=== PATIENT | female | born 1945 | race Caucasian/White ===

== ENCOUNTER 2016-11-15 09:28 | Outpatient (RCR) | payer MEDICARE ==
--- OUTSIDE RECORDS SUMMARY | 2016-09-27 09:47 | XMS REPORT | Continuity of Care Document ---
Author Author [facility] Organization [facility] Address Unknown Phone Unavailable Care Team Providers Care Sports Fitness And Wellness Director Name Role Phone Tyler Arevalo PCP [phone] Source Comments Some departments are not documenting in the electronic medical record. If you do not see the information that you expected, contact Release of Information in the Health Information Management department at [phone] for further assistance in locating additional records.[facility] Active Allergies and Adverse Reactions Allergen Noted Date Severity Reactions Comments Aspirin 07/21/2015 Low SEE COMMENTS Extreme stomach pain Erythromycin 07/21/2015 Low NAUSEA AND VOMITING Pcn 07/21/2015 Medium RASH Percodan 07/21/2015 Low NAUSEA AND VOMITING Current Medications Prescription Sig. Disp. Refills Start End Date Status Date felodipine(+) (PLENDIL) 5 Take 5 mg by mouth twice Active mg tablet daily. bisoprolol/hydrochlorothi Take 1 Tab by mouth Active azide (ZIAC) 10/6.25 [address] daily[address] tablet pantoprazole DR Take 40 mg by mouth Active (PROTONIX) 40 mg tablet daily. Cetirizine (ZYRTEC) 10 mg Take 1 Cap by mouth Active cap daily. cyanocobalamin(+) Take 500 mcg by mouth Active (VITAMIN B-12) 500 mcg daily. tablet Psyllium (METAMUCIL) 1.7 Take 1 g by mouth daily. Active g wafr vitamins, multiple tablet Take 2 Tabs by mouth Active daily. aspirin 81 mg chewable Take 1 Tab by mouth 90 Tab 3 08/08/20 Active tablet daily. You may resume 1 15 week after surgery. clopiDOGrel (PLAVIX) 75 Take 1 Tab by mouth 90 Tab 3 08/06/20 Active mg tablet daily. Please resume in 15 5-7 days after surgery levothyroxine (SYNTHROID) Take 125 mcg by mouth Active 125 mcg tablet daily. Active Problems Problem Noted Date HTN (hypertension) 07/31/2015 Anxiety 07/31/2015 GERD (gastroesophageal reflux disease) 07/31/2015 Hoarseness 07/31/2015 Thyroid cancer (HCC) 07/21/2015 Papillary thyroid carcinoma (HCC) 07/21/2015 Vocal cord paralysis 07/21/2015 Social History Tobacco Use Types Packs/Day Years Used Date Current Every Day Smoker Cigarettes 1 30 Smokeless Tobacco: Never Used Tobacco Cessation: Ready to Quit: No; Counseling Given: No Comments: Alcohol Use Drinks/Week oz/Week Comments No 0 Standard 0.0 drinks or equivalent Last Filed Vital Signs Vital Sign Reading Time Taken Blood Pressure 146/68 09/10/2015 10:09 AM VETERINARIAN Pulse 74 09/10/2015 10:09 AM VETERINARIAN Temperature 36.3 C (97.4 F) 08/01/2015 9:36 AM CDT Respiratory Rate - - Height 1.6 m (5' 3") 09/10/2015 10:09 AM VETERINARIAN Weight 58.786 kg (129 lb 9.6 oz) 09/10/2015 10:09 AM VETERINARIAN Body Mass Index 22.96 09/10/2015 10:09 AM VETERINARIAN Oxygen Saturation 100% 08/01/2015 9:36 AM CDT Plan of Care Health Maintenance Due Date Last Done Comments Physical (Comprehensive) 1950 Exam Pertussis Vaccine 1954 Tetanus Vaccine 1960 Breast Cancer Screening 1983 Colorectal Cancer 1993 Screening Shingles Vaccine 2003 Osteoporosis Screening 2008 Prevnar/Pneumovax (#1) 2008 Influenza Vaccine 07/01/2016 Results from Last 3 Months Not on file
[2016-09-27 09:50] LABS: BASOPHILS % (AUTO) 0 % (0-10); EOSINOPHILS # (AUTO) 0.1 10^3/uL (0.0-0.3); EOSINOPHILS % (AUTO) 2 % (0-10); LYMPHOCYTES # (AUTO) 1.2 X 10^3 (1.0-4.0); LYMPHOCYTES % (AUTO) 20 % (12-44); MEAN CORPUSCULAR HGB CONC 34 G/DL (32-36); MEAN CORPUSCULAR VOLUME 89 FL (80-99); MEAN PLATELET VOLUME 11.3 FL (7.4-10.4); MONOCYTES # (AUTO) 0.5 X 10^3 (0.0-1.0); MONOCYTES % (AUTO) 8 % (0-12); NEUTROPHILS # (AUTO) 4.2 X 10^3 (1.8-7.8); NEUTROPHILS % (AUTO) 69 % (42-75); PLATELET COUNT 215 10^3/uL (130-400); RED CELL DISTRIBUTION WIDTH 13.3 % (10.0-14.5); WHITE BLOOD COUNT 6.1 10^3/uL (4.3-11.0)
[2016-09-27 09:53] LABS: MEAN CORPUSCULAR HEMOGLOBIN 30 PG (25-34)
[2016-09-27 10:22] LABS: ALANINE AMINOTRANSFERASE 13 U/L (0-55); ALBUMIN 4.4 G/DL (3.2-4.5); ANION GAP 8 MMOL/L (5-14); ASPARTATE AMINO TRANSFERASE 26 U/L (5-34); BILIRUBIN,TOTAL 0.5 MG/DL (0.1-1.0); BLOOD UREA NITROGEN 18 MG/DL (7-18); BUN/CREATININE RATIO 25; CALCIUM 8.6 MG/DL (8.5-10.1); CARBON DIOXIDE 26 MMOL/L (21-32); CHLORIDE 106 MMOL/L (98-107); CREATININE SERUM 0.72 MG/DL (0.60-1.30); GFR ESTIMATED > 60; GLUCOSE 90 MG/DL (70-105); POTASSIUM 3.9 MMOL/L (3.6-5.0); SODIUM 140 MMOL/L (135-145); TOTAL PROTEIN 6.9 G/DL (6.4-8.2)
[2016-09-27 10:42] LABS: THYROID STIMULATING HORMONE 0.01 UIU/ML (0.35-4.94)
[2016-09-28 07:42] LABS: THYROGLOBULIN LEVELC 6.33 ng/mL (1.60-59.90)
[2016-09-28 15:14] LABS: THYROGLOBULIN AUTOANTIBODY PT 0.03 Units (0.00-0.50)
[~2016-11-15 09:28] MED LIST: Aspirin PO; BISO1TAB6 PO; CLPD75T PO; FELO5TAB3 PO; IBUP800T26 PO; MECL-124 PO; OMEP20CA6 PO; PNT40TEC PO; SIMV10TA3 PO
== END 2016-12-26 | disposition home or self-care (01) ==
LOC: ONC 09:28
PROVIDERS: ATTEND Internal Medicine Hematology & Oncology
DX: C73 Malignant neoplasm of thyroid gland (principal); E89.0 Postprocedural hypothyroidism; I25.10 Atherosclerotic heart disease of native coronary artery without angina pectoris; E78.5 Hyperlipidemia, unspecified; I10 Essential (primary) hypertension; F17.210 Nicotine dependence, cigarettes, uncomplicated; Z79.899 Other long term (current) drug therapy
CPT/HCPCS: 36415; 80053; 84432; 84443; 85025; 86800; 99213

== ENCOUNTER → 2016-12-29 | Outpatient (CLI) | payer MEDICARE ==
--- OUTSIDE RECORDS SUMMARY | 2016-12-29 13:54 | XMS REPORT | Continuity of Care Document ---
Author Author [facility] Organization [facility] Address Unknown Phone Unavailable Care Team Providers Care Crime Investigator Special Agent Name Role Phone Tyler Arevalo PCP [phone] Source Comments Some departments are not documenting in the electronic medical record. If you do not see the information that you expected, contact Release of Information in the Health Information Management department at [phone] for further assistance in locating additional records.[facility] Active Allergies and Adverse Reactions Allergen Noted [...] Taken Blood Pressure 146/68 09/10/2015 10:09 AM STONE GLUER Pulse 74 09/10/2015 10:09 AM STONE GLUER Temperature 36.3 C (97.4 F) 08/01/2015 9:36 AM CDT Respiratory Rate - - Height 1.6 m (5' 3") 09/10/2015 10:09 AM STONE GLUER Weight 58.786 kg (129 lb 9.6 oz) 09/10/2015 10:09 AM STONE GLUER Body Mass Index 22.96 09/10/2015 10:09 AM STONE GLUER Oxygen Saturation 100% 08/01/2015 9:36 AM CDT Plan of Care Health Maintenance Due Date Last Done Comments Physical (Comprehensive) 1950 Exam Pertussis Vaccine 1954 Tetanus Vaccine 1960 Breast Cancer Screening 1983 Colorectal Cancer 1993 Screening Shingles Vaccine 2003 Osteoporosis Screening 2008 Prevnar/Pneumovax (#1) 2008 Influenza Vaccine 07/01/2016 Results from Last 3 Months Not on file
--- NOTE | 2016-12-31 18:17 | Diagnostic Imaging Report ---
INDICATION: History of papillary thyroid cancer.. TECHNIQUE: 4.36 mCi of iodine-131 administered orally. 48-hour whole body imaging obtained. CORRELATION STUDY: 11/24/2015. FINDINGS: The previously noted intense uptake at the level of the thyroid bed has essentially resolved. There is rather pronounced uptake noted at the region of base of neck towards the right of midline. This is likely in the expected location of right submandibular region and appears to have increased compared to the prior study. Remainder of the neck appearing with minimal uptake on the left aspect. Likely physiologic uptake throughout the gastrointestinal tract. Otherwise, chest, abdomen and pelvis appearing unremarkable. IMPRESSION: 1. Increasing uptake in what appears to be region of the right submandibular gland compared to prior study. 2. Resolution of previously noted thyroid bed uptake. Dictated by: Dictated on workstation # [id number]
== END ==
LOC: CARD 13:50
PROVIDERS: ATTEND Radiology Radiation Oncology
DX: C73 Malignant neoplasm of thyroid gland (principal)
CPT/HCPCS: 78018

== ENCOUNTER → 2016-12-31 | Outpatient (CLI) | payer MEDICARE ==
--- OUTSIDE RECORDS SUMMARY | 2016-12-31 13:37 | XMS REPORT | Continuity of Care Document ---
Author Author [facility] Organization [facility] Address Unknown Phone Unavailable Care Team Providers Care Director Of Health Education Name Role Phone Tyler Arevalo PCP [phone] Source Comments Some departments are not documenting in the electronic medical record. If you do not see the information that you expected, contact Release of Information in the Health Information Management department at [phone] for further assistance in locating additional records.[facility] Active Allergies and Adverse Reactions Allergen [...] Taken Blood Pressure 146/68 09/10/2015 10:09 AM ANALYTIC MANAGER Pulse 74 09/10/2015 10:09 AM ANALYTIC MANAGER Temperature 36.3 C (97.4 F) 08/01/2015 9:36 AM CDT Respiratory Rate - - Height 1.6 m (5' 3") 09/10/2015 10:09 AM ANALYTIC MANAGER Weight 58.786 kg (129 lb 9.6 oz) 09/10/2015 10:09 AM ANALYTIC MANAGER Body Mass Index 22.96 09/10/2015 10:09 AM ANALYTIC MANAGER Oxygen Saturation 100% 08/01/2015 9:36 AM CDT Plan of Care Health Maintenance Due Date Last Done Comments Physical (Comprehensive) 1950 Exam Pertussis Vaccine 1954 Tetanus Vaccine 1960 Breast Cancer Screening 1983 Colorectal Cancer 1993 Screening Shingles Vaccine 2003 Osteoporosis Screening 2008 Prevnar/Pneumovax (#1) 2008 Influenza Vaccine 07/01/2016 Results from Last 3 Months Not on file
== END ==
LOC: CARD 13:33
PROVIDERS: ATTEND Radiology Radiation Oncology
DX: C73 Malignant neoplasm of thyroid gland (principal)

== ENCOUNTER 2017-01-27 08:54 | Outpatient (RCR) | payer MEDICARE ==
--- OUTSIDE RECORDS SUMMARY | 2016-12-27 14:00 | XMS REPORT | Continuity of Care Document ---
Author Author [facility] Organization [facility] Address Unknown Phone Unavailable Care Team Providers Care Steward/Stewardess Smoke Room Name Role Phone Tyler Arevalo PCP [phone] Source Comments Some departments are not documenting in the electronic medical record. If you do not see the information that you expected, contact Release of Information in the Health Information Management department at [phone] for further assistance in locating additional records.[facility] Active Allergies and Adverse Reactions Allergen Noted [...] Taken Blood Pressure 146/68 09/10/2015 10:09 AM TANNING SOLUTION MAKER Pulse 74 09/10/2015 10:09 AM TANNING SOLUTION MAKER Temperature 36.3 C (97.4 F) 08/01/2015 9:36 AM CDT Respiratory Rate - - Height 1.6 m (5' 3") 09/10/2015 10:09 AM TANNING SOLUTION MAKER Weight 58.786 kg (129 lb 9.6 oz) 09/10/2015 10:09 AM TANNING SOLUTION MAKER Body Mass Index 22.96 09/10/2015 10:09 AM TANNING SOLUTION MAKER Oxygen Saturation 100% 08/01/2015 9:36 AM CDT Plan of Care Health Maintenance Due Date Last Done Comments Physical (Comprehensive) 1950 Exam Pertussis Vaccine 1954 Tetanus Vaccine 1960 Breast Cancer Screening 1983 Colorectal Cancer 1993 Screening Shingles Vaccine 2003 Osteoporosis Screening 2008 Prevnar/Pneumovax (#1) 2008 Influenza Vaccine 07/01/2016 Results from Last 3 Months Not on file
[2017-01-03 07:56] LABS: THYROGLOBULIN LEVELC 51.9 ng/mL (1.60-59.90)
[2017-01-03 14:46] LABS: THYROGLOBULIN AUTOANTIBODY PT 0.79 Units (0.00-0.50)
[2017-01-18 09:29] LABS: BASOPHILS % (AUTO) 0 % (0-10); EOSINOPHILS # (AUTO) 0.2 10^3/uL (0.0-0.3); EOSINOPHILS % (AUTO) 3 % (0-10); LYMPHOCYTES # (AUTO) 1.2 X 10^3 (1.0-4.0); LYMPHOCYTES % (AUTO) 20 % (12-44); MEAN CORPUSCULAR HEMOGLOBIN 31 PG (25-34); MEAN CORPUSCULAR HGB CONC 34 G/DL (32-36); MEAN CORPUSCULAR VOLUME 90 FL (80-99); MEAN PLATELET VOLUME 11.1 FL (7.4-10.4); MONOCYTES # (AUTO) 0.5 X 10^3 (0.0-1.0); MONOCYTES % (AUTO) 9 % (0-12); NEUTROPHILS % (AUTO) 68 % (42-75); PLATELET COUNT 221 10^3/uL (130-400); RED BLOOD COUNT 4.18 10^6/uL (4.35-5.85); RED CELL DISTRIBUTION WIDTH 13.9 % (10.0-14.5); WHITE BLOOD COUNT 5.8 10^3/uL (4.3-11.0)
[2017-01-18 10:18] LABS: ALANINE AMINOTRANSFERASE 19 U/L (0-55); ALBUMIN 4.2 G/DL (3.2-4.5); ANION GAP 12 MMOL/L (5-14); ASPARTATE AMINO TRANSFERASE 25 U/L (5-34); BILIRUBIN,TOTAL 0.4 MG/DL (0.1-1.0); BLOOD UREA NITROGEN 15 MG/DL (7-18); BUN/CREATININE RATIO 18; CALCIUM 8.6 MG/DL (8.5-10.1); CARBON DIOXIDE 26 MMOL/L (21-32); CHLORIDE 105 MMOL/L (98-107); CREATININE SERUM 0.82 MG/DL (0.60-1.30); GFR ESTIMATED > 60; GLUCOSE 100 MG/DL (70-105); SODIUM 143 MMOL/L (135-145)
[2017-01-18 10:40] LABS: THYROID STIMULATING HORMONE 0.06 UIU/ML (0.35-4.94)
[2017-01-19 16:02] LABS: THYROGLOBULIN AUTOANTIBODY PT 0.03 Units (0.00-0.50)
[2017-01-20 07:27] LABS: THYROGLOBULIN LEVELC 9.81 ng/mL (1.60-59.90)
[~2017-01-27 08:54] MED LIST changes: +THYROTROPIN 1.1 MG VIAL IM SCH
== END 2017-03-27 | disposition home or self-care (01) ==
LOC: ONC 08:54
PROVIDERS: ATTEND Internal Medicine Hematology & Oncology
DX: C73 Malignant neoplasm of thyroid gland (principal); E89.0 Postprocedural hypothyroidism; I25.10 Atherosclerotic heart disease of native coronary artery without angina pectoris; E78.5 Hyperlipidemia, unspecified; I10 Essential (primary) hypertension; F17.210 Nicotine dependence, cigarettes, uncomplicated; Z79.899 Other long term (current) drug therapy
CPT/HCPCS: 36415; 80053; 84432; 84443; 85025; 86800; 96372; 99213

== ENCOUNTER → 2017-03-08 | Outpatient (CLI) | payer MEDICARE ==
[~2017-03-08] VITALS: Ht 160 cm; Wt 58.5 kg
[~2017-03-08] MED LIST changes: +CATHETER FLUSH 10 ML SYR IV PRN; -THYROTROPIN 1.1 MG VIAL IM SCH
[2017-03-08 09:11] VITALS: BP 182/69
--- NOTE | 2017-03-09 06:33 | STRESS TEST ---
DATE OF SERVICE: 03/08/2017 PROCEDURE: RESTING AND POST EXERCISE TECHNETIUM 99-M TETROFOSMIN SPECT CT IMAGING ORDERING PHYSICIAN: Murali Infante MD, RADHA, FACP, FACC PRIMARY PHYSICIAN: VALENTIN Urbina OTHER PHYSICIAN: Dr. Glynn. CLINICAL DIAGNOSES: Coronary artery disease, hypertension, hyperlipidemia, tobacco use. Baseline images were carried out after injection of 10.4 mCi of technetium-99m Tetrofosmin. This was followed by exercise on treadmill per Julio Cesar protocol was completed. The heart rate and blood pressure responses to exercise were normal. There was baseline ST segment abnormality which became more prominent with exercise. The test was stopped on account of fatigue and knee discomfort. She exercised for only 5 minutes and 22 seconds on the Julio Cesar protocol and attained 7 METS of workload. Then, 32.4 mCi of technetium-99m Tetrofosmin were injected and the Lexiscan candidate was continued for another minute. I reviewed his images at rest and following stress does not indicate any significant perfusion defects consistent with significant myocardial ischemia or infarction; however, there appears to be some degree of transient ischemic dilation. TID is 1.28. CONCLUSIONS: 1. Poor exercise capacity. 2. Abnormal electrocardiographic response to exercise. 3. Evidence of mild transient ischemic dilatation. 4. No distinct evidence of myocardial ischemia or infarction on myocardial perfusion imaging. 5. Normal global left systolic function with an ejection fraction of 79%. 6. Normal left ventricular cavity size. Job ID: [id number] DocumentID: [id number] Dictated Date: 03/08/2017 14:14:11 [employer] Date: 03/08/2017 15:41:48 Dictated By: MURALI INFANTE MD, RADHA, FACP, FACC,
== END ==
LOC: CARD 07:56
PROVIDERS: ATTEND Nurse Practitioner Family
DX: I25.10 Atherosclerotic heart disease of native coronary artery without angina pectoris (principal); I65.23 Occlusion and stenosis of bilateral carotid arteries; I10 Essential (primary) hypertension; E78.4 Other hyperlipidemia; I73.9 Peripheral vascular disease, unspecified; Z72.0 Tobacco use
CPT/HCPCS: 78452; 93017

== ENCOUNTER → 2017-03-08 | Outpatient (CLI) | payer MEDICARE ==
[~2017-03-08] MED LIST changes: -CATHETER FLUSH 10 ML SYR IV PRN
== END ==
LOC: RAD 12:24
PROVIDERS: ATTEND Nurse Practitioner Family
DX: I73.9 Peripheral vascular disease, unspecified (principal); I25.10 Atherosclerotic heart disease of native coronary artery without angina pectoris; I65.23 Occlusion and stenosis of bilateral carotid arteries; I10 Essential (primary) hypertension; E78.4 Other hyperlipidemia; Z72.0 Tobacco use
CPT/HCPCS: 93923

== ENCOUNTER → 2017-04-07 | Outpatient (CLI) | payer MEDICARE ==
--- NOTE | 2017-04-07 10:52 | Diagnostic Imaging Report ---
EXAMINATION: DEXA scan. INDICATION: Osteopenia TECHNIQUE: Bone mineral density estimated based on dual energy radiography over the lumbar spine and femoral necks, was performed. FINDINGS: The lumbar spine T-score is 0.1. This is 5.8% increased density measurement compared to 2014. The T score over the left femoral neck is -0.3 and the right side is also -0.3. This is 1.4% decreased density measurements compared to 2014. IMPRESSION: Bone mineral density is within normal limits. Increased density measurement in the lumbar spine appears to be related to degenerative sclerotic changes. Dictated by: Dictated on workstation # [id number]
== END ==
LOC: RAD 09:14
PROVIDERS: ATTEND Internal Medicine Hematology & Oncology
DX: E89.40 Asymptomatic postprocedural ovarian failure (principal); C73 Malignant neoplasm of thyroid gland; T38.1X5 Adverse effect of thyroid hormones and substitutes; M89.9 Disorder of bone, unspecified
CPT/HCPCS: 77080

== ENCOUNTER → 2017-04-26 | Outpatient (CLI) | payer MEDICARE ==
[~2017-04-26] MED LIST changes: +CATHETER FLUSH 10 ML SYR IV PRN; +IOHEXOL 350 MG/ML 100 ML (OMNIPAQUE 350) VIAL IV ONE; +NS 100 ML (IVPB) BAG IV ONE
--- NOTE | 2017-04-26 11:11 | Diagnostic Imaging Report ---
PROCEDURE: CT neck soft tissue with contrast. TECHNIQUE: Multiple contiguous axial images were obtained through the neck after the administration of contrast. INDICATION: Cancer of the thyroid gland. 75 ML of Omnipaque 350 is administered intravenously. FINDINGS: Unfortunately, this is a limited study due to a significant motion as the patient was unable to stay still for the exam. There is suggestion of prior thyroidectomy. There is no obvious mass or lymphadenopathy seen. The paranasal sinuses visualized appear from grossly unremarkable. Osseous structures demonstrate no obvious destructive mass. IMPRESSION: This is a significantly limited study due to patient motion with no obvious mass seen. Dictated by: Dictated on workstation # [id number]
== END ==
LOC: RAD 08:41
PROVIDERS: ATTEND Nurse Practitioner Adult Health
DX: C73 Malignant neoplasm of thyroid gland (principal); E05.80 Other thyrotoxicosis without thyrotoxic crisis or storm
CPT/HCPCS: 70491

== ENCOUNTER 2017-06-29 15:11 | Outpatient (RCR) | payer MEDICARE ==
[2017-04-11 10:59] LABS: BASOPHILS % (AUTO) 0 % (0-10); EOSINOPHILS # (AUTO) 0.1 10^3/uL (0.0-0.3); EOSINOPHILS % (AUTO) 2 % (0-10); LYMPHOCYTES # (AUTO) 1.1 X 10^3 (1.0-4.0); LYMPHOCYTES % (AUTO) 20 % (12-44); MEAN CORPUSCULAR HEMOGLOBIN 30 PG (25-34); MEAN CORPUSCULAR HGB CONC 33 G/DL (32-36); MEAN CORPUSCULAR VOLUME 90 FL (80-99); MEAN PLATELET VOLUME 11.1 FL (7.4-10.4); MONOCYTES # (AUTO) 0.4 X 10^3 (0.0-1.0); MONOCYTES % (AUTO) 6 % (0-12); NEUTROPHILS # (AUTO) 4.1 X 10^3 (1.8-7.8); NEUTROPHILS % (AUTO) 72 % (42-75); PLATELET COUNT 206 10^3/uL (130-400); RED BLOOD COUNT 4.26 10^6/uL (4.35-5.85); RED CELL DISTRIBUTION WIDTH 13.8 % (10.0-14.5); WHITE BLOOD COUNT 5.7 10^3/uL (4.3-11.0)
[2017-04-11 11:34] LABS: ALANINE AMINOTRANSFERASE 16 U/L (0-55); ALBUMIN 4.3 G/DL (3.2-4.5); ANION GAP 11 MMOL/L (5-14); ASPARTATE AMINO TRANSFERASE 24 U/L (5-34); BILIRUBIN,TOTAL 0.5 MG/DL (0.1-1.0); BLOOD UREA NITROGEN 14 MG/DL (7-18); BUN/CREATININE RATIO 18; CALCIUM 9.1 MG/DL (8.5-10.1); CARBON DIOXIDE 27 MMOL/L (21-32); CHLORIDE 103 MMOL/L (98-107); CREATININE SERUM 0.79 MG/DL (0.60-1.30); GFR ESTIMATED > 60; GLUCOSE 94 MG/DL (70-105); SODIUM 141 MMOL/L (135-145); TOTAL PROTEIN 7.4 G/DL (6.4-8.2)
[2017-04-11 11:57] LABS: THYROID STIMULATING HORMONE 0.13 UIU/ML (0.35-4.94)
[2017-04-12 07:34] LABS: THYROGLOBULIN LEVELC 8.23 ng/mL (1.60-59.90)
[2017-04-12 15:34] LABS: THYROGLOBULIN AUTOANTIBODY PT 0.02 Units (0.00-0.50)
[~2017-06-29 15:11] MED LIST changes: -CATHETER FLUSH 10 ML SYR IV PRN; -IOHEXOL 350 MG/ML 100 ML (OMNIPAQUE 350) VIAL IV ONE; -NS 100 ML (IVPB) BAG IV ONE
== END 2017-07-10 | disposition home or self-care (01) ==
LOC: ONC 15:11
PROVIDERS: ATTEND Internal Medicine Hematology & Oncology
DX: C73 Malignant neoplasm of thyroid gland (principal); E89.0 Postprocedural hypothyroidism; I25.10 Atherosclerotic heart disease of native coronary artery without angina pectoris; E78.5 Hyperlipidemia, unspecified; I10 Essential (primary) hypertension; F17.210 Nicotine dependence, cigarettes, uncomplicated; Z79.899 Other long term (current) drug therapy
CPT/HCPCS: 36415; 80053; 82306; 84432; 84443; 85025; 86800; 99213

== ENCOUNTER 2017-07-27 08:45 | Outpatient (RCR) | payer MEDICARE ==
[2017-07-27 09:11] LABS: BASOPHILS % (AUTO) 0 % (0-10); EOSINOPHILS # (AUTO) 0.1 10^3/uL (0.0-0.3); EOSINOPHILS % (AUTO) 2 % (0-10); LYMPHOCYTES % (AUTO) 20 % (12-44); MEAN CORPUSCULAR HEMOGLOBIN 30 PG (25-34); MEAN CORPUSCULAR HGB CONC 34 G/DL (32-36); MEAN CORPUSCULAR VOLUME 89 FL (80-99); MEAN PLATELET VOLUME 11.6 FL (7.4-10.4); MONOCYTES # (AUTO) 0.4 X 10^3 (0.0-1.0); MONOCYTES % (AUTO) 7 % (0-12); NEUTROPHILS # (AUTO) 3.8 X 10^3 (1.8-7.8); NEUTROPHILS % (AUTO) 71 % (42-75); PLATELET COUNT 216 10^3/uL (130-400); RED BLOOD COUNT 4.58 10^6/uL (4.35-5.85); RED CELL DISTRIBUTION WIDTH 13.5 % (10.0-14.5); WHITE BLOOD COUNT 5.3 10^3/uL (4.3-11.0)
[2017-07-27 09:24] LABS: ALANINE AMINOTRANSFERASE 17 U/L (0-55); ALBUMIN 4.5 GM/DL (3.2-4.5); ANION GAP 12 MMOL/L (5-14); ASPARTATE AMINO TRANSFERASE 25 U/L (5-34); BILIRUBIN,TOTAL 0.5 MG/DL (0.1-1.0); BLOOD UREA NITROGEN 12 MG/DL (7-18); BUN/CREATININE RATIO 15; CALCIUM 9.2 MG/DL (8.5-10.1); CARBON DIOXIDE 27 MMOL/L (21-32); CHLORIDE 103 MMOL/L (98-107); CREATININE SERUM 0.78 MG/DL (0.60-1.30); GFR ESTIMATED > 60; GLUCOSE 106 MG/DL (70-105); SODIUM 142 MMOL/L (135-145)
[2017-07-27 09:43] LABS: THYROID STIMULATING HORMONE 0.03 UIU/ML (0.35-4.94)
[2017-07-28 10:08] LABS: THYROGLOBULIN LEVELC 10.2 ng/mL (1.60-59.90)
[2017-07-28 12:00] LABS: THYROGLOBULIN AUTOANTIBODY PT 0.04 Units (0.00-0.50)
== END 2017-07-30 | disposition home or self-care (01) ==
LOC: ONC 08:45
PROVIDERS: ATTEND Internal Medicine Hematology & Oncology
DX: C73 Malignant neoplasm of thyroid gland (principal); E89.0 Postprocedural hypothyroidism; I25.10 Atherosclerotic heart disease of native coronary artery without angina pectoris; E78.5 Hyperlipidemia, unspecified; I10 Essential (primary) hypertension; F17.210 Nicotine dependence, cigarettes, uncomplicated; Z79.899 Other long term (current) drug therapy
CPT/HCPCS: 36415; 80053; 84432; 84443; 85025; 86800

== ENCOUNTER → 2017-09-14 | Outpatient (CLI) | payer MEDICARE | LOC: CARD 13:09 | PROVIDERS: ATTEND Radiology Radiation Oncology | DX: C73 Malignant neoplasm of thyroid gland (principal) | CPT/HCPCS: 79005 ==

== ENCOUNTER → 2017-09-26 | Outpatient (CLI) | payer MEDICARE ==
--- NOTE | 2017-09-26 21:27 | Diagnostic Imaging Report ---
STUDY: Whole body Iodine scan. TECHNIQUE: After the oral administration of 163.7 mCi iodine-131, 10 days prior to scanning, whole body scan images are performed at this time. INDICATION: Thyroid cancer. FINDINGS: There is moderate intensity of activity seen in the upper neck. This is probably related to salivary gland activity. It is, however, slightly asymmetric, more prominent to the right side. The pattern is slightly different from 12/31/2016. No other areas of activity identified in the rest of the body to suggest metastasis. IMPRESSION: Moderate areas of activity in the upper neck are favored to be related to salivary gland uptake with no definitive evidence of tumor recurrence at the thyroidectomy bed. No significant tracer uptake outside the neck. Dictated by: Dictated on workstation # [id number]
== END ==
LOC: CARD 12:40
PROVIDERS: ATTEND Radiology Radiation Oncology
DX: C73 Malignant neoplasm of thyroid gland (principal)
CPT/HCPCS: 78018

== ENCOUNTER 2017-10-13 08:37 | Outpatient (RCR) | payer MEDICARE | END 2017-11-02 | disposition home or self-care (01) | LOC: ONC 08:37 | PROVIDERS: ATTEND Internal Medicine Hematology & Oncology | DX: C73 Malignant neoplasm of thyroid gland (principal); E89.0 Postprocedural hypothyroidism; I25.10 Atherosclerotic heart disease of native coronary artery without angina pectoris; E78.5 Hyperlipidemia, unspecified; I10 Essential (primary) hypertension; F17.210 Nicotine dependence, cigarettes, uncomplicated; Z79.899 Other long term (current) drug therapy | CPT/HCPCS: 36415; 77370; 84432; 84443; 86800; 99213 ==

== ENCOUNTER → 2017-11-30 | Outpatient (CLI) | payer MEDICARE ==
--- NOTE | 2017-11-30 10:06 | Diagnostic Imaging Report ---
Indication: Routine screening. Comparison: Comparison is made with prior exams from 11/23/2013 and 05/19/2012. The current study was also evaluated with a Computer Aided Detection (CAD) system. Findings: Scattered parenchymal density is identified bilaterally. The parenchymal pattern is stable. No dominant mass or malignant-appearing microcalcifications are seen. There are benign calcifications bilaterally. The axillae are unremarkable. Impression: BI-RAD category 2 No mammographic features suspicious for malignancy are identified. ACR BI-RADS Category 2: Benign findings. Result letter will be mailed to the patient. Note: At least 10% of breast cancer is not imaged by mammography. Dictated by: Dictated on workstation # [id number]
== END ==
LOC: RAD 07:59
PROVIDERS: ATTEND Family Medicine
DX: Z12.31 Encounter for screening mammogram for malignant neoplasm of breast (principal)
CPT/HCPCS: 77067

== ENCOUNTER 2018-01-30 08:12 | Outpatient (RCR) | payer MEDICARE ==
[2017-11-03 08:41] LABS: BASOPHILS % (AUTO) 1 % (0-10); EOSINOPHILS # (AUTO) 0.1 10^3/uL (0.0-0.3); EOSINOPHILS % (AUTO) 2 % (0-10); HEMATOCRIT 38 % (35-52); HEMOGLOBIN 12.8 G/DL (11.5-16.0); LYMPHOCYTES # (AUTO) 0.8 X 10^3 (1.0-4.0); LYMPHOCYTES % (AUTO) 18 % (12-44); MEAN CORPUSCULAR HEMOGLOBIN 31 PG (25-34); MEAN CORPUSCULAR HGB CONC 34 G/DL (32-36); MEAN CORPUSCULAR VOLUME 92 FL (80-99); MEAN PLATELET VOLUME 10.3 FL (7.4-10.4); MONOCYTES # (AUTO) 0.5 X 10^3 (0.0-1.0); MONOCYTES % (AUTO) 12 % (0-12); NEUTROPHILS # (AUTO) 2.9 X 10^3 (1.8-7.8); NEUTROPHILS % (AUTO) 67 % (42-75); PLATELET COUNT 214 10^3/uL (130-400); RED CELL DISTRIBUTION WIDTH 14.6 % (10.0-14.5); WHITE BLOOD COUNT 4.3 10^3/uL (4.3-11.0)
[2017-11-03 09:05] LABS: ALANINE AMINOTRANSFERASE 18 U/L (0-55); ALBUMIN 4.3 GM/DL (3.2-4.5); ALKALINE PHOSPHATASE 85 U/L (40-136); BILIRUBIN,TOTAL 0.6 MG/DL (0.1-1.0); BUN/CREATININE RATIO 17; CALCIUM 9.1 MG/DL (8.5-10.1); CARBON DIOXIDE 28 MMOL/L (21-32); CHLORIDE 103 MMOL/L (98-107); CREATININE SERUM 0.82 MG/DL (0.60-1.30); GFR ESTIMATED > 60; GLUCOSE 115 MG/DL (70-105); POTASSIUM 4.2 MMOL/L (3.6-5.0); SODIUM 142 MMOL/L (135-145); TOTAL PROTEIN 7.6 GM/DL (6.4-8.2)
[2018-01-30 09:07] LABS: BASOPHILS % (AUTO) 0 % (0-10); EOSINOPHILS # (AUTO) 0.1 10^3/uL (0.0-0.3); EOSINOPHILS % (AUTO) 2 % (0-10); HEMATOCRIT 39 % (35-52); HEMOGLOBIN 13.3 G/DL (11.5-16.0); LYMPHOCYTES % (AUTO) 19 % (12-44); MEAN CORPUSCULAR HEMOGLOBIN 31 PG (25-34); MEAN CORPUSCULAR HGB CONC 34 G/DL (32-36); MEAN CORPUSCULAR VOLUME 92 FL (80-99); MEAN PLATELET VOLUME 11.2 FL (7.4-10.4); MONOCYTES # (AUTO) 0.5 X 10^3 (0.0-1.0); MONOCYTES % (AUTO) 8 % (0-12); NEUTROPHILS % (AUTO) 71 % (42-75); PLATELET COUNT 242 10^3/uL (130-400); RED BLOOD COUNT 4.25 10^6/uL (4.35-5.85); RED CELL DISTRIBUTION WIDTH 12.3 % (10.0-14.5); WHITE BLOOD COUNT 5.6 10^3/uL (4.3-11.0)
[2018-01-30 09:38] LABS: ALANINE AMINOTRANSFERASE 18 U/L (0-55); ALBUMIN 4.3 GM/DL (3.2-4.5); ALKALINE PHOSPHATASE 82 U/L (40-136); BILIRUBIN,TOTAL 0.5 MG/DL (0.1-1.0); BUN/CREATININE RATIO 16; CALCIUM 8.9 MG/DL (8.5-10.1); CARBON DIOXIDE 27 MMOL/L (21-32); CHLORIDE 103 MMOL/L (98-107); GFR ESTIMATED > 60; GLUCOSE 139 MG/DL (70-105); POTASSIUM 3.7 MMOL/L (3.6-5.0); SODIUM 139 MMOL/L (135-145); TOTAL PROTEIN 7.5 GM/DL (6.4-8.2)
== END 2018-02-01 | disposition home or self-care (01) ==
LOC: ONC 08:12
PROVIDERS: ATTEND Internal Medicine Hematology & Oncology
DX: C73 Malignant neoplasm of thyroid gland (principal); E89.0 Postprocedural hypothyroidism; I25.10 Atherosclerotic heart disease of native coronary artery without angina pectoris; E78.5 Hyperlipidemia, unspecified; I10 Essential (primary) hypertension; F17.210 Nicotine dependence, cigarettes, uncomplicated; Z79.899 Other long term (current) drug therapy
CPT/HCPCS: 36415; 80053; 84432; 84443; 85025; 86376; 86800; 99213

== ENCOUNTER → 2018-03-08 | Outpatient (CLI) | payer MEDICARE ==
--- NOTE | 2018-03-10 19:43 | Diagnostic Imaging Report ---
Exam: Nuclear medicine thyroid imaging, whole body. Date: March 10, 2018. Indication: 72-year-old female, history of thyroid cancer. Comparison: Nuclear medicine thyroid imaging 09/26/2017. CT neck 04/26/2017. Findings: There is no evidence of abnormal radiotracer uptake at the level of the neck. There appears to be salivary gland and bowel uptake as well as some radiotracer activity in the urinary bladder which is a normal radiotracer distribution. There is no evidence of iodine avid metastasis. Impression: 1. No nuclear medicine evidence of residual or recurrent thyroid tissue. 2. No evidence of iodine avid malignancy or metastatic disease. Dictated by: Dictated on workstation # [id number]
== END ==
LOC: CARD 12:43
PROVIDERS: ATTEND Radiology Radiation Oncology
DX: C73 Malignant neoplasm of thyroid gland (principal)
CPT/HCPCS: 78018

== ENCOUNTER → 2018-03-21 | Outpatient (CLI) | payer MEDICARE ==
--- NOTE | 2018-03-21 13:42 | Diagnostic Imaging Report ---
INDICATION: Thyroid carcinoma, restaging. TECHNIQUE: Serum blood glucose level at the time of injection is 108 mg/dL. The patient was administered 12.4 mCi F-18 FDG intravenously administered in the left antecubital location and PET imaging from the top of the skull through the mid thighs was performed. In addition, noncontrast CT was performed for attenuation correction and anatomic correlation. COMPARISON: No prior PET studies are available for comparison. FINDINGS: There appears to be symmetric activity within the brain. There is an intense region of hypermetabolism in the right neck adjacent to the right aspect of the trachea and slightly posterior at the level of the thyroid cartilage. The area of soft tissue at this location on the CT measures approximately 2.3 cm. Slightly cephalad and anterior to this adjacent to the thyroid cartilage is a second small focus of hypermetabolism with SUV max of 7. More inferiorly, there is a small focus of hypermetabolism just to the right of the trachea at the level of the medial clavicular heads and has SUV max of 5.3. A small lymph node at this location measures approximately 7 mm. There is also a small focus of hypermetabolism slightly cephalad to this adjacent to the right aspect of the esophagus with SUV max of approximately 5. This corresponds to a small nodular soft tissue density measuring 9 mm. In the chest, there is a small focus of hypermetabolism in the medial aspect of the left upper lobe at the level of the ascending thoracic aorta and projects immediately anterior to the ascending aorta. This demonstrates SUV maximum approximately 7. This does correspond to a 7 mm pulmonary nodule at this location, noncalcified. No hilar hypermetabolism is seen. Upper abdomen does show physiologic activity within the liver and spleen as well as the genitourinary and GI tracts. No abnormal hypermetabolism is seen. IMPRESSION: Multiple foci of hypermetabolism in the lower neck and upper mediastinum suggestive of metastatic disease. There is a tiny hypermetabolic pulmonary nodule in the left upper lobe, also suggestive of pulmonary metastatic disease. Dictated by: Dictated on workstation # [id number]
== END ==
LOC: RAD 09:26
PROVIDERS: ATTEND Internal Medicine Hematology & Oncology
DX: C73 Malignant neoplasm of thyroid gland (principal)

== ENCOUNTER → 2018-05-09 | Outpatient (RCR) | payer MEDICARE ==
[2018-04-18 14:47] LABS: BUN/CREATININE RATIO 15; CREATININE SERUM 0.82 MG/DL (0.60-1.30); GFR ESTIMATED > 60
== END | disposition home or self-care (01) ==
LOC: ONC 02-08 09:28
PROVIDERS: ATTEND Internal Medicine Hematology & Oncology
DX: Z51.0 Encounter for antineoplastic radiation therapy (principal); C73 Malignant neoplasm of thyroid gland; E89.0 Postprocedural hypothyroidism; I25.10 Atherosclerotic heart disease of native coronary artery without angina pectoris; E78.5 Hyperlipidemia, unspecified; I10 Essential (primary) hypertension; F17.210 Nicotine dependence, cigarettes, uncomplicated; Z79.899 Other long term (current) drug therapy
CPT/HCPCS: 36415; 77290; 77300; 77301; 77334; 77336; 77338; 77386; 77470; 82565; 84432; 84443; 84520; 86800; 99212; 99213

== ENCOUNTER 2018-06-20 10:20 | Outpatient (RCR) | payer MEDICARE ==
[2018-05-10 11:12] LABS: BASOPHILS % (AUTO) 0 % (0-10); EOSINOPHILS # (AUTO) 0.1 10^3/uL (0.0-0.3); EOSINOPHILS % (AUTO) 2 % (0-10); HEMATOCRIT 36 % (35-52); HEMOGLOBIN 12.4 G/DL (11.5-16.0); LYMPHOCYTES # (AUTO) 0.6 X 10^3 (1.0-4.0); LYMPHOCYTES % (AUTO) 15 % (12-44); MEAN CORPUSCULAR HEMOGLOBIN 32 PG (25-34); MEAN CORPUSCULAR HGB CONC 34 G/DL (32-36); MEAN CORPUSCULAR VOLUME 92 FL (80-99); MONOCYTES # (AUTO) 0.4 X 10^3 (0.0-1.0); MONOCYTES % (AUTO) 11 % (0-12); NEUTROPHILS # (AUTO) 2.8 X 10^3 (1.8-7.8); NEUTROPHILS % (AUTO) 72 % (42-75); PLATELET COUNT 194 10^3/uL (130-400); RED BLOOD COUNT 3.91 10^6/uL (4.35-5.85); WHITE BLOOD COUNT 3.8 10^3/uL (4.3-11.0)
[2018-05-26 13:38] LABS: BASOPHILS % (AUTO) 0 % (0-10); EOSINOPHILS # (AUTO) 0.1 10^3/uL (0.0-0.3); EOSINOPHILS % (AUTO) 2 % (0-10); HEMATOCRIT 37 % (35-52); HEMOGLOBIN 12.8 G/DL (11.5-16.0); LYMPHOCYTES # (AUTO) 0.4 X 10^3 (1.0-4.0); LYMPHOCYTES % (AUTO) 9 % (12-44); MEAN CORPUSCULAR HEMOGLOBIN 32 PG (25-34); MEAN CORPUSCULAR HGB CONC 35 G/DL (32-36); MEAN CORPUSCULAR VOLUME 91 FL (80-99); MEAN PLATELET VOLUME 10.4 FL (7.4-10.4); MONOCYTES # (AUTO) 0.4 X 10^3 (0.0-1.0); MONOCYTES % (AUTO) 9 % (0-12); NEUTROPHILS # (AUTO) 3.2 X 10^3 (1.8-7.8); NEUTROPHILS % (AUTO) 80 % (42-75); PLATELET COUNT 200 10^3/uL (130-400); RED BLOOD COUNT 4.04 10^6/uL (4.35-5.85)
[2018-05-26 14:00] LABS: ALANINE AMINOTRANSFERASE 17 U/L (0-55); ALBUMIN 4.3 GM/DL (3.2-4.5); ALKALINE PHOSPHATASE 58 U/L (40-136); BILIRUBIN,TOTAL 0.9 MG/DL (0.1-1.0); BUN/CREATININE RATIO 14; CALCIUM 9.3 MG/DL (8.5-10.1); CARBON DIOXIDE 28 MMOL/L (21-32); CHLORIDE 104 MMOL/L (98-107); GFR ESTIMATED > 60; GLUCOSE 113 MG/DL (70-105); POTASSIUM 3.4 MMOL/L (3.6-5.0); SODIUM 141 MMOL/L (135-145); TOTAL PROTEIN 6.8 GM/DL (6.4-8.2)
[2018-06-20 10:35] LABS: BASOPHILS % (AUTO) 0 % (0-10); EOSINOPHILS # (AUTO) 0.1 10^3/uL (0.0-0.3); EOSINOPHILS % (AUTO) 2 % (0-10); HEMATOCRIT 35 % (35-52); HEMOGLOBIN 12.1 G/DL (11.5-16.0); LYMPHOCYTES # (AUTO) 0.2 X 10^3 (1.0-4.0); LYMPHOCYTES % (AUTO) 5 % (12-44); MEAN CORPUSCULAR HEMOGLOBIN 32 PG (25-34); MEAN CORPUSCULAR HGB CONC 34 G/DL (32-36); MEAN CORPUSCULAR VOLUME 92 FL (80-99); MEAN PLATELET VOLUME 10.6 FL (7.4-10.4); MONOCYTES # (AUTO) 0.6 X 10^3 (0.0-1.0); MONOCYTES % (AUTO) 14 % (0-12); NEUTROPHILS # (AUTO) 3.3 X 10^3 (1.8-7.8); NEUTROPHILS % (AUTO) 79 % (42-75); PLATELET COUNT 197 10^3/uL (130-400); RED BLOOD COUNT 3.81 10^6/uL (4.35-5.85); RED CELL DISTRIBUTION WIDTH 13.9 % (10.0-14.5); WHITE BLOOD COUNT 4.2 10^3/uL (4.3-11.0)
[2018-06-20 10:52] LABS: ALANINE AMINOTRANSFERASE 19 U/L (0-55); ALBUMIN 4.2 GM/DL (3.2-4.5); ALKALINE PHOSPHATASE 58 U/L (40-136); BILIRUBIN,TOTAL 0.7 MG/DL (0.1-1.0); BUN/CREATININE RATIO 14; CALCIUM 9.1 MG/DL (8.5-10.1); CARBON DIOXIDE 30 MMOL/L (21-32); CHLORIDE 101 MMOL/L (98-107); CREATININE SERUM 0.79 MG/DL (0.60-1.30); GFR ESTIMATED > 60; GLUCOSE 90 MG/DL (70-105); POTASSIUM 3.4 MMOL/L (3.6-5.0); SODIUM 139 MMOL/L (135-145); TOTAL PROTEIN 6.9 GM/DL (6.4-8.2)
[2018-07-31 11:17] LABS: BASOPHILS % (AUTO) 0 % (0-10); EOSINOPHILS # (AUTO) 0.1 10^3/uL (0.0-0.3); EOSINOPHILS % (AUTO) 2 % (0-10); HEMATOCRIT 38 % (35-52); HEMOGLOBIN 13.2 G/DL (11.5-16.0); LYMPHOCYTES # (AUTO) 0.4 X 10^3 (1.0-4.0); LYMPHOCYTES % (AUTO) 10 % (12-44); MEAN CORPUSCULAR HEMOGLOBIN 32 PG (25-34); MEAN CORPUSCULAR HGB CONC 34 G/DL (32-36); MEAN CORPUSCULAR VOLUME 93 FL (80-99); MEAN PLATELET VOLUME 10.5 FL (7.4-10.4); MONOCYTES # (AUTO) 0.4 X 10^3 (0.0-1.0); MONOCYTES % (AUTO) 10 % (0-12); NEUTROPHILS # (AUTO) 3.3 X 10^3 (1.8-7.8); NEUTROPHILS % (AUTO) 79 % (42-75); PLATELET COUNT 244 10^3/uL (130-400); RED BLOOD COUNT 4.15 10^6/uL (4.35-5.85); RED CELL DISTRIBUTION WIDTH 14.4 % (10.0-14.5); WHITE BLOOD COUNT 4.2 10^3/uL (4.3-11.0)
[2018-07-31 11:37] LABS: ALANINE AMINOTRANSFERASE 22 U/L (0-55); ALBUMIN 4.5 GM/DL (3.2-4.5); ALKALINE PHOSPHATASE 66 U/L (40-136); BILIRUBIN,TOTAL 0.6 MG/DL (0.1-1.0); BUN/CREATININE RATIO 19; CALCIUM 9.6 MG/DL (8.5-10.1); CARBON DIOXIDE 25 MMOL/L (21-32); CHLORIDE 104 MMOL/L (98-107); CREATININE SERUM 0.81 MG/DL (0.60-1.30); GFR ESTIMATED > 60; GLUCOSE 98 MG/DL (70-105); SODIUM 141 MMOL/L (135-145); TOTAL PROTEIN 7.7 GM/DL (6.4-8.2)
== END 2018-07-31 11:06 | disposition home or self-care (01) ==
LOC: ONC 10:20
PROVIDERS: ATTEND Internal Medicine Hematology & Oncology
DX: Z51.0 Encounter for antineoplastic radiation therapy (principal); C73 Malignant neoplasm of thyroid gland; E89.0 Postprocedural hypothyroidism; I25.10 Atherosclerotic heart disease of native coronary artery without angina pectoris; E78.5 Hyperlipidemia, unspecified; I10 Essential (primary) hypertension; F17.210 Nicotine dependence, cigarettes, uncomplicated; Z79.899 Other long term (current) drug therapy
CPT/HCPCS: 36415; 77336; 77386; 80053; 84432; 84443; 85025; 86800; 99213

== ENCOUNTER → 2018-07-31 | Outpatient (CLI) | payer MEDICARE ==
[~2018-07-31] MED LIST changes: +IOHEXOL 350 MG/ML 100 ML (OMNIPAQUE 350) VIAL IV ONE; +NS 250 ML (IVPB) BAG IV ONE
--- NOTE | 2018-07-31 13:29 | Diagnostic Imaging Report ---
INDICATION: Thyroid carcinoma with secondary lung carcinoma. Axial imaging through the neck and chest was performed after the administration of intravenous contrast. Comparison is made with prior CT neck study from 04/26/2017 and prior PET/CT from 03/21/2018. CT neck: FINDINGS: The visualized intracranial structures are unremarkable. The posterior nasopharynx and oropharynx are unremarkable. There is a large amount of streak artifact from patient's dental hardware. The larynx is unremarkable. Thyroid appears to be surgically absent. There is soft tissue mass-like density posterior to the trachea just below the level of the thyroid and cricoid cartilage, corresponding to the area of intense hypermetabolism on PET CT. This measures 2.3 cm transverse x 1.6 cm AP. This is inseparable from the esophagus. Small lymph node more inferiorly in a right paraesophageal location at the level of the lung apices is seen measuring approximately 7 mm x 5 mm. This did show some hypermetabolism on the prior PET CT. Posterior cervical space is unremarkable. No jugulodigastric lymphadenopathy is seen. Bilateral submandibular and parotid glands appear to be symmetric. IMPRESSION: Soft tissue mass-like density in retrotracheal and paraesophageal location in the lower neck corresponding to the intense hypermetabolism noted on PET CT from February 2018. This may represent recurrent thyroid neoplasm. No other significant abnormality is identified. CT chest: FINDINGS: No axillary lymphadenopathy is identified. No definite mediastinal or hilar lymphadenopathy is seen. No pericardial or pleural fluid is identified. Parenchymal evaluation does show a pulmonary nodule in the left upper lobe medially measuring 5 mm on the lung windows, image 22 series 4. There is a 4 mm nodule anteriorly in the right upper lobe, image 26 series 4. These nodules appear stable when compared with prior PET/CT. No new pulmonary nodules are seen. Upper abdomen is unremarkable. IMPRESSION: Stable bilateral pulmonary nodules when compared with PET CT from February 2018. No thoracic lymphadenopathy is seen. Dictated by: Dictated on workstation # [id number]
== END ==
LOC: RAD 12:35
PROVIDERS: ATTEND Nurse Practitioner Adult Health
DX: C73 Malignant neoplasm of thyroid gland (principal); C78.00 Secondary malignant neoplasm of unspecified lung
CPT/HCPCS: 70491; 71260

== ENCOUNTER 2018-09-13 09:18 | Outpatient (RCR) | payer MEDICARE ==
[2018-09-11 09:51] LABS: BASOPHILS % (AUTO) 0 % (0-10); EOSINOPHILS # (AUTO) 0.1 10^3/uL (0.0-0.3); EOSINOPHILS % (AUTO) 2 % (0-10); HEMATOCRIT 38 % (35-52); HEMOGLOBIN 12.8 G/DL (11.5-16.0); LYMPHOCYTES # (AUTO) 0.4 X 10^3 (1.0-4.0); LYMPHOCYTES % (AUTO) 9 % (12-44); MEAN CORPUSCULAR HEMOGLOBIN 32 PG (25-34); MEAN CORPUSCULAR HGB CONC 34 G/DL (32-36); MEAN CORPUSCULAR VOLUME 96 FL (80-99); MEAN PLATELET VOLUME 10.6 FL (7.4-10.4); MONOCYTES # (AUTO) 0.4 X 10^3 (0.0-1.0); MONOCYTES % (AUTO) 8 % (0-12); NEUTROPHILS # (AUTO) 3.8 X 10^3 (1.8-7.8); NEUTROPHILS % (AUTO) 81 % (42-75); PLATELET COUNT 227 10^3/uL (130-400); RED BLOOD COUNT 3.96 10^6/uL (4.35-5.85); RED CELL DISTRIBUTION WIDTH 14.1 % (10.0-14.5); WHITE BLOOD COUNT 4.6 10^3/uL (4.3-11.0)
[2018-09-11 10:05] LABS: ALANINE AMINOTRANSFERASE 21 U/L (0-55); ALBUMIN 4.3 GM/DL (3.2-4.5); ALKALINE PHOSPHATASE 60 U/L (40-136); BILIRUBIN,TOTAL 0.7 MG/DL (0.1-1.0); BUN/CREATININE RATIO 16; CALCIUM 9.2 MG/DL (8.5-10.1); CARBON DIOXIDE 28 MMOL/L (21-32); CHLORIDE 103 MMOL/L (98-107); CREATININE SERUM 0.74 MG/DL (0.60-1.30); GFR ESTIMATED > 60; GLUCOSE 102 MG/DL (70-105); SODIUM 139 MMOL/L (135-145); TOTAL PROTEIN 7.1 GM/DL (6.4-8.2)
[~2018-09-13 09:18] MED LIST changes: -IOHEXOL 350 MG/ML 100 ML (OMNIPAQUE 350) VIAL IV ONE; -NS 250 ML (IVPB) BAG IV ONE
== END 2018-10-29 | disposition home or self-care (01) ==
LOC: ONC 09:18
PROVIDERS: ATTEND Internal Medicine Hematology & Oncology
DX: C73 Malignant neoplasm of thyroid gland (principal); C78.00 Secondary malignant neoplasm of unspecified lung
CPT/HCPCS: 36415; 80053; 84443; 85025; 99213

== ENCOUNTER → 2018-11-02 | Outpatient (CLI) | payer MEDICARE ==
[~2018-11-02] MED LIST changes: +IOHEXOL 350 MG/ML 100 ML (OMNIPAQUE 350) VIAL IV ONE; +NS 100 ML (IVPB) BAG IV ONE; +RECEIVED CONTRAST (Hold Metformin) IV SCH
--- NOTE | 2018-11-02 10:19 | Diagnostic Imaging Report ---
CT of the neck and chest with contrast. Indication: Thyroid carcinoma. Contiguous axial sections were taken from the midportion of the skull to the lung apices following administration of intravenous contrast. Subsequently, images of the thorax were obtained after intravenous contrast was administered. Sagittal and coronal reconstructed images were also performed. The previous CT neck exam of 07/31/2018 noted a soft tissue mass in the retrotracheal region and paraesophageal locations in the lower neck. These did correspond to the areas of hypermetabolism noted on the PET/CT exam from 03/21/2018. On this exam those soft tissue densities are again visualized. The mass in the retrotracheal region now measures 1.6 x 2.1 cm as opposed to 1.6 x 2.3 cm previously. The small suspected lymph node in the right paraesophageal region measuring 7 x 5 mm on the prior exam is unchanged in size on this study (image 6 of 63). The prior study also identified a 5 mm nodule in the medial aspect of the left upper lung and a 4 mm nodule in the anterior aspect of the right upper lobe. Those findings are again evident on this study and do not seem to have changed significantly (axial series images 21 and 25 of 63). The lungs are otherwise generally clear. There is no sign of failure, pneumonia or pleural effusion to indicate an acute abnormality. The heart size is stable. There is no defect within the pulmonary arteries to indicate a pulmonary embolus and there is no sign of an aneurysm of the aorta. There is no aortic dissection identified either. There is no mediastinal or hilar adenopathy visualized. There is no obvious breast mass. The sections through the upper abdomen fail to show any sign of an acute abnormality. The images through the neck are also unremarkable for an acute abnormality. There is no new mass or adenopathy noted. The submandibular glands appear symmetrical. The parotid glands are not particularly well imaged. The images through the skull base show no sign of a mass or of an acute intracranial abnormality. The sinuses are generally clear. The bone windows show no sign of fracture or destructive lesion. Impression: 1. The right retrotracheal mass and the lymph node in the right paraesophageal region seen on the prior study are again evident and no different. 2. The lung nodules are also unchanged when compare to the prior exam. Overall, there has been no adverse change since the previous study. 3. There is no acute abnormality identified. Dictated by: Dictated on workstation # [id number]
== END ==
LOC: RAD 08:08
PROVIDERS: ATTEND Nurse Practitioner Adult Health
DX: C73 Malignant neoplasm of thyroid gland (principal); C78.00 Secondary malignant neoplasm of unspecified lung; C78.1 Secondary malignant neoplasm of mediastinum
CPT/HCPCS: 70491; 71260

== ENCOUNTER → 2018-12-28 | Outpatient (CLI) | payer MEDICARE ==
[~2018-12-28] MED LIST changes: +CATHETER FLUSH 10 ML SYR IV PRN
--- NOTE | 2018-12-28 12:07 | Diagnostic Imaging Report ---
EXAMINATION: CT of the neck and chest with contrast. INDICATION: Thyroid carcinoma. TECHNIQUE: Contiguous axial sections were taken from the midportion of the skull through the lung apices following administration of intravenous contrast. Subsequently, images of the thorax were obtained extending from the lung apices to the diaphragm. Sagittal and coronal reconstructed images were also performed. FINDINGS: The recent CT neck/chest exam of 11/02/2008 noted a 1.6 x 2.1 cm retrotracheal mass on the right. That findings is again evident and now measures 1.5 x 2.2 cm. The prior study also identified a small 7 x 5 mm paraesophageal mass on the right. That nodule now measures 4 x 7 mm (image 6 to 64). In addition, there was a 5 mm nodule in the medial aspect of the left upper lobe and a 4 mm nodule in the anterior aspect of the right upper lobe. Those findings are again evident and virtually unchanged (image 22 and 26/64). There is also now a 5 mm opacity nodule in the medial aspect of the right upper lobe. This was present on the prior exam, although at that time had more of the appearance of just an opacity within the lung parenchyma and not a discrete nodule. The lungs are otherwise clear. The heart is stable in size. There is no defect within the pulmonary arteries to indicate a pulmonary embolus. The aorta is not abnormally dilated and there is no sign of dissection. There is no mediastinal or hilar adenopathy. The sections through the upper abdomen fail to show any evidence for an acute abnormality. There is no obvious breast mass. The bone windows are unremarkable for fracture or for destructive lesion. The images through the neck and skull base show no significant change when compared to the previous study. IMPRESSION: 1. The retrotracheal node on the right, the small paraesophageal node on the right, and the nodules involving the upper lungs seen previously are again evident and not significantly changed. 2. However, there is now a 5 mm nodule in the medial aspect of the right upper lobe. This finding was present on the prior exam as a vague opacity but now has more of a defined nodular look. 3. The overall appearance of the neck and chest is otherwise unchanged. No new abnormality has developed. Dictated by: Dictated on workstation # [id number]
--- NOTE | 2018-12-28 17:58 | Diagnostic Imaging Report ---
EXAMINATION: Whole body bone scan. INDICATION: Thyroid cancer. TECHNIQUE: This study was performed following administration of 25.7 mCi of 99m technetium MDP. Anterior and posterior whole body images were obtained as well as spot films of the skull and thorax on the lateral projection. FINDINGS: There are no prior nuclear medicine bone scans available for comparison. The I-131 whole body scan performed on 03/10/2018 failed to show any sign of malignancy in the thyroid bed or of metastatic disease. There is no focal area of increased or decreased activity to indicate metastatic disease. There does seem to be increased uptake in both shoulder joints, particularly on the right. There is also some increasing uptake in both knee joints, again more so on the right. These findings are probably degenerative in nature. There is excretion of the radiotracer by both kidneys. The right kidney is low-lying and does appear to be at the level of the pelvic brim. IMPRESSION: There is no evidence for metastatic disease or for an acute abnormality. Dictated by: Dictated on workstation # [id number]
== END ==
LOC: CARD 10:51
PROVIDERS: ATTEND Internal Medicine Hematology & Oncology
DX: C73 Malignant neoplasm of thyroid gland (principal); C78.00 Secondary malignant neoplasm of unspecified lung
CPT/HCPCS: 70491; 71260; 78306

== ENCOUNTER 2019-01-04 09:28 | Outpatient (RCR) | payer MEDICARE ==
[2018-11-01 10:30] LABS: BASOPHILS % (AUTO) 0 % (0-10); EOSINOPHILS % (AUTO) 1 % (0-10); HEMATOCRIT 39 % (35-52); LYMPHOCYTES # (AUTO) 0.4 X 10^3 (1.0-4.0); LYMPHOCYTES % (AUTO) 9 % (12-44); MEAN CORPUSCULAR HEMOGLOBIN 31 PG (25-34); MEAN CORPUSCULAR HGB CONC 34 G/DL (32-36); MEAN CORPUSCULAR VOLUME 94 FL (80-99); MEAN PLATELET VOLUME 10.4 FL (7.4-10.4); MONOCYTES # (AUTO) 0.3 X 10^3 (0.0-1.0); MONOCYTES % (AUTO) 8 % (0-12); NEUTROPHILS # (AUTO) 3.6 X 10^3 (1.8-7.8); NEUTROPHILS % (AUTO) 82 % (42-75); PLATELET COUNT 225 10^3/uL (130-400); RED CELL DISTRIBUTION WIDTH 13.5 % (10.0-14.5); WHITE BLOOD COUNT 4.4 10^3/uL (4.3-11.0)
[2018-11-01 10:47] LABS: ALANINE AMINOTRANSFERASE 23 U/L (0-55); ALBUMIN 4.4 GM/DL (3.2-4.5); ALKALINE PHOSPHATASE 65 U/L (40-136); BILIRUBIN,TOTAL 0.7 MG/DL (0.1-1.0); BUN/CREATININE RATIO 16; CALCIUM 9.1 MG/DL (8.5-10.1); CARBON DIOXIDE 24 MMOL/L (21-32); CHLORIDE 105 MMOL/L (98-107); CREATININE SERUM 0.74 MG/DL (0.60-1.30); GFR ESTIMATED > 60; GLUCOSE 112 MG/DL (70-105); POTASSIUM 3.8 MMOL/L (3.6-5.0); SODIUM 140 MMOL/L (135-145); TOTAL PROTEIN 7.2 GM/DL (6.4-8.2)
[2018-12-27 11:34] LABS: BASOPHILS % (AUTO) 0 % (0-10); EOSINOPHILS # (AUTO) 0.1 10^3/uL (0.0-0.3); EOSINOPHILS % (AUTO) 2 % (0-10); HEMATOCRIT 40 % (35-52); HEMOGLOBIN 13.2 G/DL (11.5-16.0); LYMPHOCYTES # (AUTO) 0.5 X 10^3 (1.0-4.0); LYMPHOCYTES % (AUTO) 12 % (12-44); MEAN CORPUSCULAR HEMOGLOBIN 31 PG (25-34); MEAN CORPUSCULAR HGB CONC 33 G/DL (32-36); MEAN CORPUSCULAR VOLUME 93 FL (80-99); MEAN PLATELET VOLUME 10.5 FL (7.4-10.4); MONOCYTES # (AUTO) 0.3 X 10^3 (0.0-1.0); MONOCYTES % (AUTO) 7 % (0-12); NEUTROPHILS # (AUTO) 3.1 X 10^3 (1.8-7.8); NEUTROPHILS % (AUTO) 79 % (42-75); PLATELET COUNT 214 10^3/uL (130-400); RED CELL DISTRIBUTION WIDTH 13.3 % (10.0-14.5); WHITE BLOOD COUNT 3.9 10^3/uL (4.3-11.0)
[2018-12-27 11:51] LABS: ALANINE AMINOTRANSFERASE 22 U/L (0-55); ALBUMIN 4.3 GM/DL (3.2-4.5); ALKALINE PHOSPHATASE 68 U/L (40-136); BILIRUBIN,TOTAL 0.6 MG/DL (0.1-1.0); BUN/CREATININE RATIO 16; CALCIUM 9.3 MG/DL (8.5-10.1); CARBON DIOXIDE 28 MMOL/L (21-32); CHLORIDE 104 MMOL/L (98-107); CREATININE SERUM 0.77 MG/DL (0.60-1.30); GFR ESTIMATED > 60; GLUCOSE 100 MG/DL (70-105); POTASSIUM 3.7 MMOL/L (3.6-5.0); SODIUM 141 MMOL/L (135-145); TOTAL PROTEIN 7.1 GM/DL (6.4-8.2)
[~2019-01-04 09:28] MED LIST changes: -CATHETER FLUSH 10 ML SYR IV PRN; -IOHEXOL 350 MG/ML 100 ML (OMNIPAQUE 350) VIAL IV ONE; -NS 100 ML (IVPB) BAG IV ONE; -RECEIVED CONTRAST (Hold Metformin) IV SCH
== END 2019-01-30 | disposition home or self-care (01) ==
LOC: ONC 09:28
PROVIDERS: ATTEND Internal Medicine Hematology & Oncology
DX: C73 Malignant neoplasm of thyroid gland (principal); C78.02 Secondary malignant neoplasm of left lung; C78.1 Secondary malignant neoplasm of mediastinum; C79.89 Secondary malignant neoplasm of other specified sites; E89.0 Postprocedural hypothyroidism; I25.10 Atherosclerotic heart disease of native coronary artery without angina pectoris; E78.5 Hyperlipidemia, unspecified; I10 Essential (primary) hypertension; F17.210 Nicotine dependence, cigarettes, uncomplicated; Z79.899 Other long term (current) drug therapy
CPT/HCPCS: 36415; 80053; 84432; 84443; 85025; 86800; 99213

== ENCOUNTER → 2019-04-13 | Outpatient (CLI) | payer MEDICARE ==
[~2019-04-13] MED LIST changes: +CATHETER FLUSH 10 ML SYR IV PRN; +HOLD METFORMIN - RECEIVED CONTRAST 20 ML VIAL IV SCH; +IOHEXOL 350 MG/ML 100 ML (OMNIPAQUE 350) VIAL IV ONE; +NS 100 ML (IVPB) BAG IV ONE
--- NOTE | 2019-04-13 20:43 | Diagnostic Imaging Report ---
Exam: Nuclear medicine whole body bone scan. Date: April 13, 2019. Indication: 73-year-old female, history of thyroid cancer. Comparison: Nuclear medicine whole body bone scan, December 28, 2018. CT neck, chest and abdomen, April 13, 2019. CT neck and chest, December 28, 2018. PET/CT, March 21, 2018. Nuclear medicine bone scan may not necessarily be sensitive for detection of bone metastasis relating to thyroid malignancy. Findings: 27.0 mCi of technetium labeled MDP was administered. Delayed whole-body bone scan images were subsequently obtained. There is radiotracer uptake adjacent to the right and left knees which is likely arthritic related. 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 There is no identified radiotracer avid bone lesion specifically raising concern for osteoblastic bone metastasis. Impression: No identified bone lesion concerning for osteoblastic bone metastasis. Dictated by: Dictated on workstation # [id number]
--- NOTE | 2019-04-13 22:04 | Diagnostic Imaging Report ---
EXAM: CT neck, chest and abdomen with intravenous contrast. DATE: April 13, 2019. INDICATION: 73-year-old female, history of thyroid cancer. COMPARISON: CT neck and chest, December 28, 2018. November 02, 2018. July 31, 2018. CT neck, April 26, 2017. FINDINGS: There is high attenuation in the region of the thyroid bed posteriorly and to the right of midline with an axial extent of approximately 2.0 x 1.0 cm in size. This was present on prior CT neck exam of July 31, 2018 and previously measured larger at 2.3 x 1.6 cm in size. This is also decreased in size since December 28, 2018 when it previously measured 2.2 x 1.5 cm in size. There is medialization of the right vocal cord which may relate to right-sided vocal cord paralysis. There are surgical clips in the right neck in the midline lower neck. There is no identified focal abnormally enlarged cervical lymph node specifically meeting CT size criteria for adenopathy. There is a very small nodular focus at site of previously noted hypermetabolic activity at the level of the superior mediastinum to the right of midline on prior PET axial fused image 82. This is difficult to evaluate on CT although does appear to be persistently present. The additional previously noted subcentimeter hypermetabolic foci within the neck on prior PET/CT are not well seen on CT. This could relate to their small size. The bilateral parotid and submandibular glands are without identified nodule or mass. There is no identified mucosal or submucosal mass along the surface of the airway. There is a mixed lucent and sclerotic appearance of the thyroid cartilage similar in appearance to prior exam. There are degenerative changes of the cervical spine. There is a 4 mm noncalcified right lower lobe pulmonary nodule on axial image 33 which is unchanged since July 31, 2018. There is a 6 mm noncalcified left upper lobe pulmonary nodule on axial image 25 which is also unchanged since July 2018. There is a 3 mm noncalcified left lower lobe pulmonary nodule on axial image 27 which is unchanged. There is no new or enlarging pulmonary nodule. There is no focal airspace consolidation. There is no pneumothorax. There is no pleural effusion. The central airways are patent. There is no identified large central pulmonary embolus. The main pulmonary artery is within normal limits in caliber. The heart is not grossly enlarged. There is no pericardial effusion. There are atherosclerotic calcifications. There is no identified abnormally enlarged mediastinal, hilar or axillary lymph node which meets CT size criteria for adenopathy. The liver is unremarkable in size and contour. There is no identified focal liver lesion. The main, right and left portal veins are patent. The gallbladder is unremarkable. There is no intrahepatic or extrahepatic bile duct dilation. The main pancreatic duct is not abnormally dilated. Unremarkable appearance of the pancreatic parenchyma. The spleen is normal in size. The adrenal glands are unremarkable. There are subcentimeter low-attenuation renal lesions too small to characterize. There is no hydronephrosis. Visualized portions of the intestinal tract are not distended. There is no identified abnormally enlarged lymph node in the abdomen which meets CT size criteria for adenopathy. There are degenerative changes of the lumbar and thoracic spine. There is anterolisthesis of L4 on L5. There is no identified bone lesion suspicious for bone metastasis. IMPRESSION: 1. High attenuation material to the right of midline posteriorly in the region of the thyroid bed which is decreased in size since December 28, 2018. This is hypermetabolic on prior PET/CT of March 21, 2018 which was compatible with residual thyroid malignancy at that time. 2. Areas of previously noted small hypermetabolic foci at the level of the neck which likely was previously related to metastatic flakito disease on prior PET/CT of March 21, 2018 are not well seen on CT with potential exception of the right superior mediastinal lymph node which does appear to be persistently present. Lack of visualization on CT may be limited relating to the very small size of these foci and sensitivity for detection may be improved on PET/CT. 3. Left sided pulmonary nodule previously noted to be hypermetabolic on prior PET/CT and likely relating to metastatic disease to the lungs is unchanged in size since December 28, 2018. Additional subcentimeter pulmonary nodules are also unchanged in size. 4. New findings of right-sided vocal cord paralysis. Dictated by: Dictated on workstation # [id number]
== END ==
LOC: CARD 11:20
PROVIDERS: ATTEND Internal Medicine Hematology & Oncology
DX: C73 Malignant neoplasm of thyroid gland (principal); C78.02 Secondary malignant neoplasm of left lung; C78.1 Secondary malignant neoplasm of mediastinum
CPT/HCPCS: 70491; 71260; 74160; 78306

== ENCOUNTER 2019-04-18 12:06 | Outpatient (RCR) | payer MEDICARE ==
[2019-04-09 10:10] LABS: BASOPHILS % (AUTO) 0 % (0-10); EOSINOPHILS # (AUTO) 0.1 10^3/uL (0.0-0.3); EOSINOPHILS % (AUTO) 2 % (0-10); HEMATOCRIT 43 % (35-52); HEMOGLOBIN 14.5 G/DL (11.5-16.0); LYMPHOCYTES # (AUTO) 0.6 X 10^3 (1.0-4.0); LYMPHOCYTES % (AUTO) 10 % (12-44); MEAN CORPUSCULAR HEMOGLOBIN 31 PG (25-34); MEAN CORPUSCULAR HGB CONC 34 G/DL (32-36); MEAN CORPUSCULAR VOLUME 91 FL (80-99); MEAN PLATELET VOLUME 10.8 FL (7.4-10.4); MONOCYTES # (AUTO) 0.4 X 10^3 (0.0-1.0); MONOCYTES % (AUTO) 8 % (0-12); NEUTROPHILS # (AUTO) 4.3 X 10^3 (1.8-7.8); NEUTROPHILS % (AUTO) 79 % (42-75); PLATELET COUNT 254 10^3/uL (130-400); RED CELL DISTRIBUTION WIDTH 13.7 % (10.0-14.5); WHITE BLOOD COUNT 5.4 10^3/uL (4.3-11.0)
[2019-04-09 10:34] LABS: ALANINE AMINOTRANSFERASE 20 U/L (0-55); ALBUMIN 4.7 GM/DL (3.2-4.5); ALKALINE PHOSPHATASE 80 U/L (40-136); BILIRUBIN,TOTAL 0.6 MG/DL (0.1-1.0); BUN/CREATININE RATIO 13; CALCIUM 9.5 MG/DL (8.5-10.1); CARBON DIOXIDE 27 MMOL/L (21-32); CHLORIDE 101 MMOL/L (98-107); CREATININE SERUM 0.76 MG/DL (0.60-1.30); GFR ESTIMATED > 60; GLUCOSE 117 MG/DL (70-105); POTASSIUM 3.8 MMOL/L (3.6-5.0); SODIUM 140 MMOL/L (135-145); TOTAL PROTEIN 8.2 GM/DL (6.4-8.2)
[~2019-04-18 12:06] MED LIST changes: -CATHETER FLUSH 10 ML SYR IV PRN; -HOLD METFORMIN - RECEIVED CONTRAST 20 ML VIAL IV SCH; -IOHEXOL 350 MG/ML 100 ML (OMNIPAQUE 350) VIAL IV ONE; -NS 100 ML (IVPB) BAG IV ONE
== END 2019-07-08 | disposition home or self-care (01) ==
LOC: ONC 12:06
PROVIDERS: ATTEND Internal Medicine Hematology & Oncology
DX: C73 Malignant neoplasm of thyroid gland (principal); C78.02 Secondary malignant neoplasm of left lung; C78.1 Secondary malignant neoplasm of mediastinum; C79.89 Secondary malignant neoplasm of other specified sites; E89.0 Postprocedural hypothyroidism; I25.10 Atherosclerotic heart disease of native coronary artery without angina pectoris; E78.5 Hyperlipidemia, unspecified; I10 Essential (primary) hypertension; F17.210 Nicotine dependence, cigarettes, uncomplicated; Z79.899 Other long term (current) drug therapy
CPT/HCPCS: 80053; 84432; 84443; 85025; 86800; 99213

== ENCOUNTER → 2019-07-09 | Outpatient (CLI) | payer MEDICARE ==
[~2019-07-09] MED LIST changes: +HOLD METFORMIN - RECEIVED CONTRAST 20 ML VIAL IV SCH; +IOHEXOL 350 MG/ML 100 ML (OMNIPAQUE 350) VIAL IV ONE; +NS 100 ML (IVPB) BAG IV ONE
--- NOTE | 2019-07-09 14:41 | Diagnostic Imaging Report ---
INDICATION: Thyroid neoplasm, secondary cancer of lung. Comparison is made to study of 04/13/2019. CT neck: Imaging through the skull base is unremarkable. Mastoid air cells are clear, bilaterally. There are surgical changes of thyroidectomy and right neck resection without evidence of discrete mass or fluid collection identified. The hyperdense focus in the right thyroid bed posterior to the trachea now measures approximately 1.6 x 1.0 cm compared with 1.9 x 1.0 cm on the previous study. No other neck mass, fluid collection or pathologic adenopathy is identified. The distortion of the right vocal cord is stable and may be related to vocal cord paralysis. IMPRESSION: Stable or slightly decreased hyperdense focus in the posterior right thyroid bed. Stability suggests probable benign etiology although clinical correlation and continued followup examination with PET would be useful. There is persistent abnormal course of the right vocal cord which may be due to paralysis. CT chest: There are numerous scattered tiny nodules again seen within the lungs. Largest is in the medial left upper lobe and measures 0.5 cm in size and is not significantly changed. There is an approximately 0.5 cm nodule in the anterior right upper lobe with small grouping of minimal nodules in the periphery of the posterior right upper lobe. There is no evidence of pathologic adenopathy. No significant free fluid is seen within the pleural spaces or in the pericardium. There is mild diffuse cervical spondylosis with degenerative facet arthropathy most pronounced on the left at the C3-C4 level. The airway is widely patent. Parotid and submandibular salivary glands are unremarkable. IMPRESSION: Several persistent pulmonary nodules are present measuring up to 0.5 cm without evidence of new mass or disease progression by CT criteria. Dictated by: Dictated on workstation # [id number]
== END ==
LOC: RAD 12:37
PROVIDERS: ATTEND Internal Medicine Hematology & Oncology
DX: C73 Malignant neoplasm of thyroid gland (principal); C78.00 Secondary malignant neoplasm of unspecified lung; C79.89 Secondary malignant neoplasm of other specified sites; Z90.89 Acquired absence of other organs
CPT/HCPCS: 70491; 71260

== ENCOUNTER 2019-10-02 09:40 | Outpatient (RCR) | payer MEDICARE ==
[2019-07-09 10:46] LABS: BASOPHILS % (AUTO) 0 % (0-10); EOSINOPHILS # (AUTO) 0.1 10^3/uL (0.0-0.3); EOSINOPHILS % (AUTO) 2 % (0-10); HEMATOCRIT 39 % (35-52); HEMOGLOBIN 12.9 G/DL (11.5-16.0); LYMPHOCYTES # (AUTO) 0.6 X 10^3 (1.0-4.0); LYMPHOCYTES % (AUTO) 13 % (12-44); MEAN CORPUSCULAR HEMOGLOBIN 31 PG (25-34); MEAN CORPUSCULAR HGB CONC 33 G/DL (32-36); MEAN CORPUSCULAR VOLUME 92 FL (80-99); MONOCYTES # (AUTO) 0.4 X 10^3 (0.0-1.0); MONOCYTES % (AUTO) 9 % (0-12); NEUTROPHILS # (AUTO) 3.4 X 10^3 (1.8-7.8); NEUTROPHILS % (AUTO) 76 % (42-75); PLATELET COUNT 202 10^3/uL (130-400); RED CELL DISTRIBUTION WIDTH 13.8 % (10.0-14.5); WHITE BLOOD COUNT 4.4 10^3/uL (4.3-11.0)
[2019-07-09 11:13] LABS: ALANINE AMINOTRANSFERASE 13 U/L (0-55); ALBUMIN 4.5 GM/DL (3.2-4.5); ALKALINE PHOSPHATASE 81 U/L (40-136); BILIRUBIN,TOTAL 0.7 MG/DL (0.1-1.0); BUN/CREATININE RATIO 11; CALCIUM 9.4 MG/DL (8.5-10.1); CARBON DIOXIDE 26 MMOL/L (21-32); CHLORIDE 103 MMOL/L (98-107); CREATININE SERUM 0.79 MG/DL (0.60-1.30); GFR ESTIMATED > 60; GLUCOSE 95 MG/DL (70-105); POTASSIUM 4.1 MMOL/L (3.6-5.0); SODIUM 140 MMOL/L (135-145); TOTAL PROTEIN 7.7 GM/DL (6.4-8.2)
[~2019-10-02 09:40] MED LIST changes: -HOLD METFORMIN - RECEIVED CONTRAST 20 ML VIAL IV SCH; -IOHEXOL 350 MG/ML 100 ML (OMNIPAQUE 350) VIAL IV ONE; -NS 100 ML (IVPB) BAG IV ONE
[2019-10-02 09:59] LABS: BASOPHILS % (AUTO) 0 % (0-10); EOSINOPHILS # (AUTO) 0.1 10^3/uL (0.0-0.3); EOSINOPHILS % (AUTO) 2 % (0-10); HEMATOCRIT 39 % (35-52); HEMOGLOBIN 13.1 G/DL (11.5-16.0); LYMPHOCYTES # (AUTO) 0.6 X 10^3 (1.0-4.0); LYMPHOCYTES % (AUTO) 12 % (12-44); MEAN CORPUSCULAR HEMOGLOBIN 30 PG (25-34); MEAN CORPUSCULAR HGB CONC 33 G/DL (32-36); MEAN CORPUSCULAR VOLUME 91 FL (80-99); MEAN PLATELET VOLUME 10.8 FL (7.4-10.4); MONOCYTES # (AUTO) 0.4 X 10^3 (0.0-1.0); MONOCYTES % (AUTO) 9 % (0-12); NEUTROPHILS # (AUTO) 3.5 X 10^3 (1.8-7.8); NEUTROPHILS % (AUTO) 76 % (42-75); PLATELET COUNT 213 10^3/uL (130-400); RED CELL DISTRIBUTION WIDTH 14.2 % (10.0-14.5); WHITE BLOOD COUNT 4.6 10^3/uL (4.3-11.0)
[2019-10-02 10:41] LABS: ALANINE AMINOTRANSFERASE 18 U/L (0-55); ALBUMIN 4.7 GM/DL (3.2-4.5); ALKALINE PHOSPHATASE 90 U/L (40-136); BILIRUBIN,TOTAL 0.6 MG/DL (0.1-1.0); BUN/CREATININE RATIO 11; CALCIUM 9.3 MG/DL (8.5-10.1); CARBON DIOXIDE 27 MMOL/L (21-32); CHLORIDE 104 MMOL/L (98-107); CREATININE SERUM 0.84 MG/DL (0.60-1.30); GFR ESTIMATED > 60; GLUCOSE 96 MG/DL (70-105); POTASSIUM 4.2 MMOL/L (3.6-5.0); SODIUM 142 MMOL/L (135-145); TOTAL PROTEIN 7.8 GM/DL (6.4-8.2)
== END 2019-10-07 | disposition home or self-care (01) ==
LOC: ONC 09:40
PROVIDERS: ATTEND Internal Medicine Hematology & Oncology
DX: C73 Malignant neoplasm of thyroid gland (principal); C78.02 Secondary malignant neoplasm of left lung; C78.1 Secondary malignant neoplasm of mediastinum; C79.89 Secondary malignant neoplasm of other specified sites; E89.0 Postprocedural hypothyroidism; I25.10 Atherosclerotic heart disease of native coronary artery without angina pectoris; E78.5 Hyperlipidemia, unspecified; I10 Essential (primary) hypertension; F17.210 Nicotine dependence, cigarettes, uncomplicated; Z79.899 Other long term (current) drug therapy
CPT/HCPCS: 36415; 80053; 84432; 84443; 85025; 86376; 86800; 99213

== ENCOUNTER → 2020-01-07 | Outpatient (RCR) | payer MEDICARE | END | disposition home or self-care (01) | LOC: ONC 10-09 09:26 | PROVIDERS: ATTEND Internal Medicine Hematology & Oncology | DX: C73 Malignant neoplasm of thyroid gland (principal); C78.02 Secondary malignant neoplasm of left lung; C78.1 Secondary malignant neoplasm of mediastinum; C79.89 Secondary malignant neoplasm of other specified sites; E89.0 Postprocedural hypothyroidism; I25.10 Atherosclerotic heart disease of native coronary artery without angina pectoris; E78.5 Hyperlipidemia, unspecified; I10 Essential (primary) hypertension; F17.210 Nicotine dependence, cigarettes, uncomplicated; Z79.899 Other long term (current) drug therapy | CPT/HCPCS: 99213 ==

== ENCOUNTER → 2020-01-08 | Outpatient (CLI) | payer MEDICARE ==
--- NOTE | 2020-01-08 13:31 | Diagnostic Imaging Report ---
INDICATION: Thyroid carcinoma and lung nodules. TECHNIQUE: Serum blood glucose level at the time of injection was 104 mg/dL. Patient was administered 14.5 mCi F-18 FDG intravenously in left antecubital location and PET imaging was performed from the top of skull to mid thighs. Noncontrast CT was also performed for attenuation correction and anatomic correlation. CORRELATION: Correlation is made with prior PET/CT study from 03/21/2018 as well as conventional CT neck and chest study from 07/09/2019. FINDINGS: There is symmetric activity throughout the brain. There has been overall improvement in the soft tissues of the neck when compared with prior PET study. The intense focus of activity adjacent to the trachea on the right side appears to be slightly less intense and demonstrates an SUV max of approximately 4.4. Smaller area just cephalad to this adjacent to the right thyroid cartilage on prior study persists but demonstrates SUV max now less than 2. Inferiorly at the level of the clavicular heads and to the right of the esophagus on prior studies no longer visualized. No hypermetabolism in the pulmonary parenchyma is seen. There is no hypermetabolic foci within the mediastinum or edgard. Abdomen and pelvis demonstrates physiologic activity in the gastrointestinal and genitourinary tracts. No suspicious hypermetabolism is identified. IMPRESSION: Improved PET/CT study when compared with prior exam from 03/21/2018. Several areas of hypermetabolism on prior study of the neck are no longer visualized. A hypermetabolic nodule in the left upper lobe medially is no longer hypermetabolic. No new foci are seen. Dictated by: Dictated on workstation # [id number]
== END ==
LOC: RAD 08:15
PROVIDERS: ATTEND Internal Medicine Hematology & Oncology
DX: C73 Malignant neoplasm of thyroid gland (principal); R91.8 Other nonspecific abnormal finding of lung field

== ENCOUNTER 2020-03-31 09:38 | Outpatient (RCR) | payer MEDICARE ==
[2020-03-31 09:57] LABS: BASOPHILS % (AUTO) 1 % (0-10); EOSINOPHILS # (AUTO) 0.1 10^3/uL (0.0-0.3); EOSINOPHILS % (AUTO) 2 % (0-10); HEMATOCRIT 38 % (35-52); HEMOGLOBIN 12.6 G/DL (11.5-16.0); LYMPHOCYTES # (AUTO) 0.6 X 10^3 (1.0-4.0); LYMPHOCYTES % (AUTO) 13 % (12-44); MEAN CORPUSCULAR HEMOGLOBIN 30 PG (25-34); MEAN CORPUSCULAR HGB CONC 33 G/DL (32-36); MEAN CORPUSCULAR VOLUME 90 FL (80-99); MONOCYTES # (AUTO) 0.4 X 10^3 (0.0-1.0); MONOCYTES % (AUTO) 8 % (0-12); NEUTROPHILS # (AUTO) 3.7 X 10^3 (1.8-7.8); NEUTROPHILS % (AUTO) 77 % (42-75); PLATELET COUNT 233 10^3/uL (130-400); RED CELL DISTRIBUTION WIDTH 14.2 % (10.0-14.5); WHITE BLOOD COUNT 4.8 10^3/uL (4.3-11.0)
[2020-03-31 10:11] LABS: ALANINE AMINOTRANSFERASE 14 U/L (0-55); ALBUMIN 4.2 GM/DL (3.2-4.5); ALKALINE PHOSPHATASE 96 U/L (40-136); BILIRUBIN,TOTAL 0.7 MG/DL (0.1-1.0); BUN/CREATININE RATIO 10; CARBON DIOXIDE 26 MMOL/L (21-32); CHLORIDE 104 MMOL/L (98-107); CREATININE SERUM 0.79 MG/DL (0.60-1.30); GFR ESTIMATED > 60; GLUCOSE 105 MG/DL (70-105); POTASSIUM 3.8 MMOL/L (3.6-5.0); SODIUM 140 MMOL/L (135-145); TOTAL PROTEIN 7.5 GM/DL (6.4-8.2)
== END 2020-04-13 | disposition home or self-care (01) ==
LOC: ONC 09:38
PROVIDERS: ATTEND Internal Medicine Hematology & Oncology
DX: C73 Malignant neoplasm of thyroid gland (principal); C78.02 Secondary malignant neoplasm of left lung; C78.1 Secondary malignant neoplasm of mediastinum; C79.89 Secondary malignant neoplasm of other specified sites; E89.0 Postprocedural hypothyroidism; I25.10 Atherosclerotic heart disease of native coronary artery without angina pectoris; E78.5 Hyperlipidemia, unspecified; I10 Essential (primary) hypertension; F17.210 Nicotine dependence, cigarettes, uncomplicated; Z79.899 Other long term (current) drug therapy
CPT/HCPCS: 80053; 84432; 84443; 85025; 86800; 99213

== ENCOUNTER 2020-07-14 10:45 | Outpatient (RCR) | payer MEDICARE ==
[2020-07-14 09:25] LABS: BASOPHILS % (AUTO) 0 % (0-10); EOSINOPHILS # (AUTO) 0.1 10^3/uL (0.0-0.3); EOSINOPHILS % (AUTO) 2 % (0-10); HEMATOCRIT 40 % (35-52); LYMPHOCYTES # (AUTO) 0.7 X 10^3 (1.0-4.0); LYMPHOCYTES % (AUTO) 13 % (12-44); MEAN CORPUSCULAR HEMOGLOBIN 29 PG (25-34); MEAN CORPUSCULAR HGB CONC 33 G/DL (32-36); MEAN CORPUSCULAR VOLUME 87 FL (80-99); MEAN PLATELET VOLUME 11.1 FL (7.4-10.4); MONOCYTES # (AUTO) 0.4 X 10^3 (0.0-1.0); MONOCYTES % (AUTO) 7 % (0-12); NEUTROPHILS # (AUTO) 4.2 X 10^3 (1.8-7.8); NEUTROPHILS % (AUTO) 79 % (42-75); PLATELET COUNT 215 10^3/uL (130-400); WHITE BLOOD COUNT 5.3 10^3/uL (4.3-11.0)
[2020-07-14 09:44] LABS: ALANINE AMINOTRANSFERASE 14 U/L (0-55); ALBUMIN 4.5 GM/DL (3.2-4.5); ALKALINE PHOSPHATASE 92 U/L (40-136); BILIRUBIN,TOTAL 0.7 MG/DL (0.1-1.0); BUN/CREATININE RATIO 10; CALCIUM 9.1 MG/DL (8.5-10.1); CARBON DIOXIDE 27 MMOL/L (21-32); CHLORIDE 103 MMOL/L (98-107); CREATININE SERUM 0.78 MG/DL (0.60-1.30); GFR ESTIMATED > 60; GLUCOSE 96 MG/DL (70-105); POTASSIUM 3.6 MMOL/L (3.6-5.0); SODIUM 141 MMOL/L (135-145)
[~2020-07-14 10:45] MED LIST changes: -BARIUM SUSPENSION 2.1% (VANILLA SILQ) 450 ML PO ONE; -CATHETER FLUSH 10 ML SYR IV PRN; -HOLD METFORMIN - RECEIVED CONTRAST 20 ML VIAL IV SCH; -IOHEXOL 350 MG/ML 100 ML (OMNIPAQUE 350) VIAL IV ONE; -NS 100 ML (IVPB) BAG IV ONE
== END 2020-07-17 15:04 | disposition home or self-care (01) ==
LOC: ONC 10:45
PROVIDERS: ATTEND Internal Medicine Hematology & Oncology
DX: C73 Malignant neoplasm of thyroid gland (principal); C78.02 Secondary malignant neoplasm of left lung; C78.1 Secondary malignant neoplasm of mediastinum; C79.89 Secondary malignant neoplasm of other specified sites; E89.0 Postprocedural hypothyroidism; I25.10 Atherosclerotic heart disease of native coronary artery without angina pectoris; E78.5 Hyperlipidemia, unspecified; I10 Essential (primary) hypertension; F17.210 Nicotine dependence, cigarettes, uncomplicated; Z79.899 Other long term (current) drug therapy; Z90.89 Acquired absence of other organs
CPT/HCPCS: 80053; 84432; 84443; 85025; 86800; 99213

== ENCOUNTER → 2020-07-14 | Outpatient (CLI) | payer MEDICARE ==
[~2020-07-14] MED LIST changes: +BARIUM SUSPENSION 2.1% (VANILLA SILQ) 450 ML PO ONE; +CATHETER FLUSH 10 ML SYR IV PRN; +HOLD METFORMIN - RECEIVED CONTRAST 20 ML VIAL IV SCH; +IOHEXOL 350 MG/ML 100 ML (OMNIPAQUE 350) VIAL IV ONE; +NS 100 ML (IVPB) BAG IV ONE
--- NOTE | 2020-07-14 13:12 | Diagnostic Imaging Report ---
INDICATION: Papillary thyroid carcinoma. COMPARISON: Correlation is made with prior CT from 07/09/2019. FINDINGS: CT neck: The visualized intracranial structures are unremarkable. Posterior nasopharynx is unremarkable. Oropharynx is unremarkable. Epiglottis is unremarkable. Vocal folds appear to be stable. The slightly hyperdense focus in the right thyroid bed previously described appears very similar to prior exam when measured by the same technique. Parotid and submandibular glands are symmetric. No cervical lymphadenopathy is detected. No supraclavicular lymphadenopathy is detected. IMPRESSION: Stable CT neck when compared with prior study from 07/09/2019. CT chest: No axillary lymphadenopathy is detected. No mediastinal or hilar lymphadenopathy is detected. No pericardial or pleural fluid is identified. Previously noted medial left upper lobe pulmonary nodule remains stable at 5 mm, image 24 series 2. Nodule in the anterior right upper lobe appears stable at 5 mm, image 28 series 2. Tiny peripheral nodules in the right upper lobe are stable as well. No new pulmonary nodule or infiltrate is detected. IMPRESSION: Stable pulmonary nodules when compared with exam one year earlier. No thoracic lymphadenopathy is identified. CT abdomen: No discrete liver mass is detected. Gallbladder is unremarkable. No biliary ductal dilatation is seen. Pancreas and spleen are unremarkable. No adrenal mass is detected. Low-density cortical lesion of left kidney appears to be stable. Aorta is heavily calcified but nonaneurysmal. No central, retroperitoneal or mesenteric lymphadenopathy is seen. There is no ascites. The bowel loops are normal caliber. IMPRESSION: Unremarkable CT abdomen. No lymphadenopathy or evidence of metastatic disease is detected. Dictated by: Dictated on workstation # [id number]
--- NOTE | 2020-07-14 14:24 | Diagnostic Imaging Report ---
INDICATION: Thyroid carcinoma. TECHNIQUE: The patient was administered 27.1 mCi of technetium 99m MDP intravenously and whole-body imaging was performed after a three-hour delay. COMPARISON: Correlation is made with the prior whole body bone scan from 04/13/2019. FINDINGS: Normal uptake of activity by the axial and appendicular skeleton is noted. There is normal uptake by the kidneys with excretion into the urinary bladder. Mild uptake in the bilateral knees and bilateral feet is noted, likely degenerative. No suspicious focus of tracer accumulation is seen to suggest osseous metastatic disease. IMPRESSION: No scintigraphic evidence of osseous metastatic disease. Dictated by: Dictated on workstation # [id number]
== END ==
LOC: CARD 10:43
PROVIDERS: ATTEND Nurse Practitioner Adult Health
DX: C73 Malignant neoplasm of thyroid gland (principal); C78.00 Secondary malignant neoplasm of unspecified lung; C79.89 Secondary malignant neoplasm of other specified sites; C78.1 Secondary malignant neoplasm of mediastinum
CPT/HCPCS: 70491; 71260; 74160; 78306; A9503

== ENCOUNTER 2020-10-08 09:16 | Outpatient (RCR) | payer MEDICARE ==
[2020-01-07 09:46] LABS: BASOPHILS % (AUTO) 0 % (0-10); EOSINOPHILS # (AUTO) 0.1 10^3/uL (0.0-0.3); EOSINOPHILS % (AUTO) 2 % (0-10); HEMATOCRIT 40 % (35-52); HEMOGLOBIN 13.2 G/DL (11.5-16.0); LYMPHOCYTES # (AUTO) 0.5 X 10^3 (1.0-4.0); LYMPHOCYTES % (AUTO) 10 % (12-44); MEAN CORPUSCULAR HEMOGLOBIN 31 PG (25-34); MEAN CORPUSCULAR HGB CONC 33 G/DL (32-36); MEAN CORPUSCULAR VOLUME 92 FL (80-99); MEAN PLATELET VOLUME 10.5 FL (7.4-10.4); MONOCYTES # (AUTO) 0.3 X 10^3 (0.0-1.0); MONOCYTES % (AUTO) 6 % (0-12); NEUTROPHILS # (AUTO) 4.3 X 10^3 (1.8-7.8); NEUTROPHILS % (AUTO) 82 % (42-75); PLATELET COUNT 208 10^3/uL (130-400); WHITE BLOOD COUNT 5.2 10^3/uL (4.3-11.0)
[2020-01-07 10:08] LABS: ALANINE AMINOTRANSFERASE 14 U/L (0-55); ALBUMIN 4.5 GM/DL (3.2-4.5); ALKALINE PHOSPHATASE 86 U/L (40-136); BILIRUBIN,TOTAL 0.7 MG/DL (0.1-1.0); BUN/CREATININE RATIO 11; CALCIUM 9.2 MG/DL (8.5-10.1); CARBON DIOXIDE 29 MMOL/L (21-32); CHLORIDE 103 MMOL/L (98-107); CREATININE SERUM 0.82 MG/DL (0.60-1.30); GFR ESTIMATED > 60; GLUCOSE 106 MG/DL (70-105); POTASSIUM 3.9 MMOL/L (3.6-5.0); SODIUM 141 MMOL/L (135-145); TOTAL PROTEIN 7.6 GM/DL (6.4-8.2)
[2020-10-08 09:34] LABS: BASOPHILS % (AUTO) 1 % (0-10); EOSINOPHILS # (AUTO) 0.1 10^3/uL (0.0-0.3); EOSINOPHILS % (AUTO) 2 % (0-10); HEMATOCRIT 40 % (35-52); HEMOGLOBIN 12.8 g/dL (11.5-16.0); LYMPHOCYTES # (AUTO) 0.7 10^3/uL (1.0-4.0); LYMPHOCYTES % (AUTO) 12 % (12-44); MEAN CORPUSCULAR HEMOGLOBIN 29 pg (25-34); MEAN CORPUSCULAR HGB CONC 32 g/dL (32-36); MEAN CORPUSCULAR VOLUME 90 fL (80-99); MEAN PLATELET VOLUME 11.2 fL (9.0-12.2); MONOCYTES # (AUTO) 0.4 10^3/uL (0.0-1.0); MONOCYTES % (AUTO) 7 % (0-12); NEUTROPHILS # (AUTO) 4.3 10^3/uL (1.8-7.8); NEUTROPHILS % (AUTO) 79 % (42-75); PLATELET COUNT 225 10^3/uL (130-400); WHITE BLOOD COUNT 5.5 10^3/uL (4.3-11.0)
[2020-10-08 10:17] LABS: ALANINE AMINOTRANSFERASE 17 U/L (0-55); ALBUMIN 4.4 GM/DL (3.2-4.5); ALKALINE PHOSPHATASE 91 U/L (40-136); BILIRUBIN,TOTAL 0.7 MG/DL (0.1-1.0); BUN/CREATININE RATIO 12; CALCIUM 9.1 MG/DL (8.5-10.1); CARBON DIOXIDE 26 MMOL/L (21-32); CHLORIDE 103 MMOL/L (98-107); CREATININE SERUM 0.84 MG/DL (0.60-1.30); GFR ESTIMATED > 60; GLUCOSE 112 MG/DL (70-105); POTASSIUM 3.8 MMOL/L (3.6-5.0); SODIUM 141 MMOL/L (135-145); TOTAL PROTEIN 7.8 GM/DL (6.4-8.2)
== END 2020-10-12 | disposition home or self-care (01) ==
LOC: ONC 09:16
PROVIDERS: ATTEND Internal Medicine Hematology & Oncology
DX: C73 Malignant neoplasm of thyroid gland (principal); C78.00 Secondary malignant neoplasm of unspecified lung; C79.89 Secondary malignant neoplasm of other specified sites; C78.1 Secondary malignant neoplasm of mediastinum; E89.0 Postprocedural hypothyroidism; Z98.890 Other specified postprocedural states
CPT/HCPCS: 80053; 84432; 84443; 85025; 86800; 99213

== ENCOUNTER 2020-10-15 12:25 | Outpatient (RCR) | payer MEDICARE | END 2020-11-18 13:02 | disposition home or self-care (01) | LOC: ONC 12:25 | PROVIDERS: ATTEND Internal Medicine Hematology & Oncology | DX: C73 Malignant neoplasm of thyroid gland (principal); C78.00 Secondary malignant neoplasm of unspecified lung; C79.89 Secondary malignant neoplasm of other specified sites; E03.9 Hypothyroidism, unspecified; C78.1 Secondary malignant neoplasm of mediastinum; Z98.890 Other specified postprocedural states | CPT/HCPCS: 99213 ==

== ENCOUNTER → 2020-10-21 | Outpatient (CLI) | payer MEDICARE ==
--- NOTE | 2020-10-22 09:42 | Diagnostic Imaging Report ---
INDICATION: Malignant neoplasm of the thyroid with abnormal tumor markers. TECHNIQUE: The serum blood glucose level at the time of injection was 107 mg/dL. The patient was administered 15.2 mCi of F-18 FDG intravenously in the right antecubital location and PET imaging was performed from the top of the skull to the mid thighs. A noncontrast CT was also performed for attenuation correction and anatomic correlation. COMPARISON: Correlation is made with the prior PET/CT study from 01/08/2020. FINDINGS: There is symmetric activity throughout the brain. Several small foci of hypermetabolism in the neck are identified. A focus adjacent to the trachea on the right side demonstrates an SUV max of 4.8. Just inferior and slightly laterally, a focus of hypermetabolism demonstrates an SUV max of 4.8 as well. There is a tiny focus adjacent to the right aspect of the thyroid cartilage with low level activity with an SUV max of 2.2. There do appear to be some erosive changes in the thyroid cartilage on the right side on today's exam. A small focus on the left just inferior to the thyroid cartilage demonstrates an SUV max of 4.0. No other foci within the soft tissues of the neck are identified. The mediastinum and edgard are unremarkable. There is a small nodule in the right upper lobe showing low level activity with an SUV max of 1.6. The abdomen and pelvis demonstrate physiologic activity throughout the GI and tracts. No other suspicious foci are identified. IMPRESSION: There are several metabolic foci within the soft tissues of the neck, as described. A focus in the anterior left neck just below the level of the cricoid cartilage does appear to be new. There are some erosive changes in the thyroid cartilage on the right on today's exam. No other new activity is identified. Dictated by: Dictated on workstation # [id number]
== END ==
LOC: RAD 12:00
PROVIDERS: ATTEND Internal Medicine Hematology & Oncology
DX: C73 Malignant neoplasm of thyroid gland (principal); R97.8 Other abnormal tumor markers
CPT/HCPCS: 78815; A9552

== ENCOUNTER 2021-01-21 09:03 | Outpatient (RCR) | payer MEDICARE ==
[2021-02-09 09:47] LABS: BASOPHILS % (AUTO) 1 % (0-10); EOSINOPHILS # (AUTO) 0.1 10^3/uL (0.0-0.3); EOSINOPHILS % (AUTO) 2 % (0-10); HEMATOCRIT 41 % (35-52); HEMOGLOBIN 13.4 G/DL (11.5-16.0); LYMPHOCYTES # (AUTO) 0.8 X 10^3 (1.0-4.0); LYMPHOCYTES % (AUTO) 13 % (12-44); MEAN CORPUSCULAR HEMOGLOBIN 30 PG (25-34); MEAN CORPUSCULAR HGB CONC 33 G/DL (32-36); MEAN CORPUSCULAR VOLUME 90 FL (80-99); MEAN PLATELET VOLUME 11.8 FL (7.4-10.4); MONOCYTES # (AUTO) 0.5 X 10^3 (0.0-1.0); MONOCYTES % (AUTO) 8 % (0-12); NEUTROPHILS # (AUTO) 4.5 X 10^3 (1.8-7.8); NEUTROPHILS % (AUTO) 76 % (42-75); PLATELET COUNT 204 10^3/uL (130-400); WHITE BLOOD COUNT 5.9 10^3/uL (4.3-11.0)
[2021-02-09 09:48] LABS: ALANINE AMINOTRANSFERASE 16 U/L (0-55); ALKALINE PHOSPHATASE 79 U/L (40-136); BILIRUBIN,TOTAL 0.8 MG/DL (0.1-1.0); BUN/CREATININE RATIO 11; CARBON DIOXIDE 25 MMOL/L (21-32); CHLORIDE 104 MMOL/L (98-107); CREATININE SERUM 0.82 MG/DL (0.60-1.30); GFR ESTIMATED > 60; GLUCOSE 107 MG/DL (70-105); POTASSIUM 4.1 MMOL/L (3.6-5.0); SODIUM 142 MMOL/L (135-145)
[2021-02-09 09:49] LABS: ALBUMIN 4.3 GM/DL (3.2-4.5); TOTAL PROTEIN 7.6 GM/DL (6.4-8.2)
== END 2021-02-16 | disposition home or self-care (01) ==
LOC: ONC 09:03
PROVIDERS: ATTEND Internal Medicine Hematology & Oncology
DX: C73 Malignant neoplasm of thyroid gland (principal); C78.00 Secondary malignant neoplasm of unspecified lung; E03.9 Hypothyroidism, unspecified; I10 Essential (primary) hypertension; Z90.89 Acquired absence of other organs
CPT/HCPCS: 80053; 84443; 85025; 99213

== ENCOUNTER → 2021-05-19 | Outpatient (CLI) | payer MEDICARE ==
--- NOTE | 2021-05-19 11:47 | Diagnostic Imaging Report ---
Patient received an intravenous dose of 12.6 mCi 18 F fluorodeoxyglucose after one hour CT fusion PET from the calvarial vertex to the upper thighs. Study is compared with similar performed exam dated 10/21/2020. INDICATION: Thyroid cancer with metastatic disease. This is for restaging. FINDINGS: Previously there were 4, and today there are 5 hypermetabolic lower neck nodules within or near the post-therapeutic thyroid bed. The new mass is the most inferior left-sided lesion pretracheal at the level of the thoracic inlet with an SUV max of 9.6. This is the most active mass. A right paratracheal mass has an SUV value today of 9.3. Previously these nodules at peak SUV values of 4.8. Findings are consistent with regional progression of flakito metastatic disease. Scalp, calvarium and intracranial contents revealed no suspicious hypermetabolic asymmetry. The nasopharynx, oropharynx and hypopharynx unremarkable. No chest wall lesion. The axilla, edgard and mediastinum unremarkable. No FDG avid lung mass. The liver is stable and negative. No metabolically active adrenal mass. There is no mesenteric or retroperitoneal adenopathy. No abdominal pelvic ascites or fluid collection. No FDG avid lytic or sclerotic bony lesion. IMPRESSION: 1. Perithyroidal cervical hypermetabolic lesions have increased in FDG avidity and number consistent with regional progression. 2. No findings of FDG avid distant metastases. Dictated by: Dictated on workstation # [id number]
== END ==
LOC: RAD 09:00
PROVIDERS: ATTEND Internal Medicine Hematology & Oncology
DX: E07.89 Other specified disorders of thyroid (principal); R97.8 Other abnormal tumor markers; Z85.850 Personal history of malignant neoplasm of thyroid
CPT/HCPCS: 78815; A9552

== ENCOUNTER 2021-06-08 09:00 | Outpatient (RCR) | payer MEDICARE ==
[2021-03-11 10:41] LABS: BASOPHILS % (AUTO) 1 % (0-10); EOSINOPHILS # (AUTO) 0.1 10^3/uL (0.0-0.3); EOSINOPHILS % (AUTO) 2 % (0-10); HEMATOCRIT 41 % (35-52); HEMOGLOBIN 13.3 g/dL (11.5-16.0); LYMPHOCYTES # (AUTO) 0.8 10^3/uL (1.0-4.0); LYMPHOCYTES % (AUTO) 16 % (12-44); MEAN CORPUSCULAR HEMOGLOBIN 30 pg (25-34); MEAN CORPUSCULAR HGB CONC 32 g/dL (32-36); MEAN CORPUSCULAR VOLUME 92 fL (80-99); MEAN PLATELET VOLUME 11.1 fL (9.0-12.2); MONOCYTES # (AUTO) 0.5 10^3/uL (0.0-1.0); MONOCYTES % (AUTO) 10 % (0-12); NEUTROPHILS # (AUTO) 3.5 10^3/uL (1.8-7.8); NEUTROPHILS % (AUTO) 72 % (42-75); PLATELET COUNT 223 10^3/uL (130-400); WHITE BLOOD COUNT 4.8 10^3/uL (4.3-11.0)
[2021-03-11 10:58] LABS: ALANINE AMINOTRANSFERASE 16 U/L (0-55); ALBUMIN 4.4 GM/DL (3.2-4.5); ALKALINE PHOSPHATASE 71 U/L (40-136); BILIRUBIN,TOTAL 0.7 MG/DL (0.1-1.0); BUN/CREATININE RATIO 14; CALCIUM 8.9 MG/DL (8.5-10.1); CARBON DIOXIDE 29 MMOL/L (21-32); CHLORIDE 101 MMOL/L (98-107); CREATININE SERUM 0.84 MG/DL (0.60-1.30); GFR ESTIMATED > 60; GLUCOSE 99 MG/DL (70-105); SODIUM 140 MMOL/L (135-145); TOTAL PROTEIN 7.6 GM/DL (6.4-8.2)
[2021-05-22 09:40] LABS: BASOPHILS % (AUTO) 1 % (0-10); EOSINOPHILS # (AUTO) 0.1 10^3/uL (0.0-0.3); EOSINOPHILS % (AUTO) 2 % (0-10); HEMATOCRIT 40 % (35-52); LYMPHOCYTES # (AUTO) 0.8 10^3/uL (1.0-4.0); LYMPHOCYTES % (AUTO) 15 % (12-44); MEAN CORPUSCULAR HEMOGLOBIN 29 pg (25-34); MEAN CORPUSCULAR HGB CONC 33 g/dL (32-36); MEAN CORPUSCULAR VOLUME 90 fL (80-99); MONOCYTES # (AUTO) 0.5 10^3/uL (0.0-1.0); MONOCYTES % (AUTO) 9 % (0-12); NEUTROPHILS # (AUTO) 3.9 10^3/uL (1.8-7.8); NEUTROPHILS % (AUTO) 73 % (42-75); PLATELET COUNT 223 10^3/uL (130-400); WHITE BLOOD COUNT 5.3 10^3/uL (4.3-11.0)
[2021-05-22 09:57] LABS: ALBUMIN 4.3 GM/DL (3.2-4.5); POTASSIUM 3.9 MMOL/L (3.6-5.0)
[2021-05-22 09:58] LABS: CALCIUM 9.1 MG/DL (8.5-10.1)
[2021-05-22 09:59] LABS: TOTAL PROTEIN 7.8 GM/DL (6.4-8.2)
[2021-05-22 10:01] LABS: BILIRUBIN,TOTAL 0.7 MG/DL (0.1-1.0)
[2021-05-22 10:03] LABS: CREATININE SERUM 0.74 MG/DL (0.60-1.30)
== END 2021-06-09 | disposition home or self-care (01) ==
LOC: ONC 09:00
PROVIDERS: ATTEND Internal Medicine Hematology & Oncology
DX: C73 Malignant neoplasm of thyroid gland (principal); C78.02 Secondary malignant neoplasm of left lung; I10 Essential (primary) hypertension; E89.0 Postprocedural hypothyroidism; Z79.899 Other long term (current) drug therapy; Z79.890 Hormone replacement therapy; F17.210 Nicotine dependence, cigarettes, uncomplicated; Z90.89 Acquired absence of other organs
CPT/HCPCS: 80053; 84432; 84443; 85025; 86800; G0463; 84156; 99213; 99214

== ENCOUNTER → 2021-09-01 | Outpatient (CLI) | payer MEDICARE ==
--- NOTE | 2021-09-01 13:15 | Diagnostic Imaging Report ---
INDICATION: Malignant neoplasm of the thyroid gland with metastases to the mediastinum. This study is performed for subsequent restaging. TECHNIQUE: The serum blood glucose level at the time of injections was 88 mg/dL. The patient was administered 13.8 mCi of F-18 FDG intravenously in the right antecubital location and PET imaging was performed from the top of the skull to the mid thighs. A noncontrast CT was also performed for attenuation correction and anatomic correlation. COMPARISON: Correlation is made with the prior PET/CT from 05/19/2021. FINDINGS: There appears to be symmetric activity throughout the intracranial structures. The posterior nasopharynx and oropharynx are unremarkable. There continue to be hypermetabolic nodules in the perithyroidal soft tissue neck. The most metabolically active nodule was the more inferior and left-sided nodule on the prior study, now showing an SUV max of 7.3 compared with 9.6 on the prior study. A right paratracheal mass demonstrates an SUV max of 9.8 compared with 9.3 on the prior exam. The mass more posteriorly located to the trachea in the right para-midline location demonstrates an SUV max of 9.8. No mediastinal or hilar hypermetabolism is seen. The axilla are unremarkable. There are two nodules in the right upper lobe measuring approximately 4 and 3 mm in size which show very low level activity, similar to the prior study. The abdomen and pelvis demonstrate physiologic activity throughout the GI and tracts. There is no suspicious hypermetabolism identified. IMPRESSION: Overall stable PET/CT study when compared with the prior exam from 05/27/2021. There continue to be hypermetabolic lymph nodes in the perithyroidal soft tissues, consistent with local metastatic flakito disease. No new foci are detected. Dictated by: Dictated on workstation # [id number]
== END ==
LOC: RAD 08:15
PROVIDERS: ATTEND Nurse Practitioner Adult Health
DX: C73 Malignant neoplasm of thyroid gland (principal); C78.1 Secondary malignant neoplasm of mediastinum; C78.2 Secondary malignant neoplasm of pleura
CPT/HCPCS: 78815; A9552

== ENCOUNTER 2021-09-08 09:23 | Outpatient (RCR) | payer MEDICARE ==
[2021-06-16 09:05] LABS: BASOPHILS % (AUTO) 1 % (0-10); EOSINOPHILS # (AUTO) 0.1 10^3/uL (0.0-0.3); EOSINOPHILS % (AUTO) 2 % (0-10); HEMATOCRIT 40 % (35-52); HEMOGLOBIN 12.8 g/dL (11.5-16.0); LYMPHOCYTES # (AUTO) 0.5 10^3/uL (1.0-4.0); LYMPHOCYTES % (AUTO) 9 % (12-44); MEAN CORPUSCULAR HEMOGLOBIN 29 pg (25-34); MEAN CORPUSCULAR HGB CONC 32 g/dL (32-36); MEAN CORPUSCULAR VOLUME 90 fL (80-99); MEAN PLATELET VOLUME 11.3 fL (9.0-12.2); MONOCYTES # (AUTO) 0.5 10^3/uL (0.0-1.0); MONOCYTES % (AUTO) 9 % (0-12); NEUTROPHILS # (AUTO) 4.6 10^3/uL (1.8-7.8); NEUTROPHILS % (AUTO) 80 % (42-75); PLATELET COUNT 222 10^3/uL (130-400); WHITE BLOOD COUNT 5.7 10^3/uL (4.3-11.0)
[2021-06-16 09:23] LABS: ALBUMIN 4.3 GM/DL (3.2-4.5); BILIRUBIN,TOTAL 0.7 MG/DL (0.1-1.0); CALCIUM 9.4 MG/DL (8.5-10.1); CREATININE SERUM 0.83 MG/DL (0.60-1.30); POTASSIUM 3.9 MMOL/L (3.6-5.0); TOTAL PROTEIN 7.5 GM/DL (6.4-8.2)
[2021-07-01 09:54] LABS: BASOPHILS % (AUTO) 1 % (0-10); EOSINOPHILS # (AUTO) 0.1 10^3/uL (0.0-0.3); EOSINOPHILS % (AUTO) 1 % (0-10); HEMATOCRIT 44 % (35-52); HEMOGLOBIN 14.5 g/dL (11.5-16.0); LYMPHOCYTES # (AUTO) 0.7 10^3/uL (1.0-4.0); LYMPHOCYTES % (AUTO) 12 % (12-44); MEAN CORPUSCULAR HEMOGLOBIN 29 pg (25-34); MEAN CORPUSCULAR HGB CONC 33 g/dL (32-36); MEAN CORPUSCULAR VOLUME 89 fL (80-99); MEAN PLATELET VOLUME 10.7 fL (9.0-12.2); MONOCYTES # (AUTO) 0.4 10^3/uL (0.0-1.0); MONOCYTES % (AUTO) 7 % (0-12); NEUTROPHILS # (AUTO) 4.8 10^3/uL (1.8-7.8); NEUTROPHILS % (AUTO) 79 % (42-75); PLATELET COUNT 203 10^3/uL (130-400)
[2021-07-14 10:59] LABS: BASOPHILS % (AUTO) 0 % (0-10); EOSINOPHILS # (AUTO) 0.1 10^3/uL (0.0-0.3); EOSINOPHILS % (AUTO) 1 % (0-10); HEMATOCRIT 43 % (35-52); HEMOGLOBIN 13.9 g/dL (11.5-16.0); LYMPHOCYTES # (AUTO) 0.8 10^3/uL (1.0-4.0); LYMPHOCYTES % (AUTO) 14 % (12-44); MEAN CORPUSCULAR HEMOGLOBIN 29 pg (25-34); MEAN CORPUSCULAR HGB CONC 33 g/dL (32-36); MEAN CORPUSCULAR VOLUME 88 fL (80-99); MONOCYTES # (AUTO) 0.5 10^3/uL (0.0-1.0); MONOCYTES % (AUTO) 9 % (0-12); NEUTROPHILS # (AUTO) 4.2 10^3/uL (1.8-7.8); NEUTROPHILS % (AUTO) 75 % (42-75); PLATELET COUNT 226 10^3/uL (130-400); WHITE BLOOD COUNT 5.6 10^3/uL (4.3-11.0)
[2021-07-14 11:22] LABS: ALBUMIN 4.2 GM/DL (3.2-4.5); BILIRUBIN,TOTAL 0.8 MG/DL (0.1-1.0); CALCIUM 9.3 MG/DL (8.5-10.1); CREATININE SERUM 0.83 MG/DL (0.60-1.30); TOTAL PROTEIN 7.4 GM/DL (6.4-8.2)
[2021-07-28 09:43] LABS: BILIRUBIN,TOTAL 0.7 MG/DL (0.1-1.0); CALCIUM 9.2 MG/DL (8.5-10.1); CREATININE SERUM 0.82 MG/DL (0.60-1.30); POTASSIUM 4.1 MMOL/L (3.6-5.0); TOTAL PROTEIN 7.4 GM/DL (6.4-8.2)
[2021-08-11 09:42] LABS: BASOPHILS % (AUTO) 1 % (0-10); EOSINOPHILS # (AUTO) 0.1 10^3/uL (0.0-0.3); EOSINOPHILS % (AUTO) 2 % (0-10); HEMATOCRIT 45 % (35-52); HEMOGLOBIN 14.9 g/dL (11.5-16.0); LYMPHOCYTES # (AUTO) 0.9 10^3/uL (1.0-4.0); LYMPHOCYTES % (AUTO) 16 % (12-44); MEAN CORPUSCULAR HEMOGLOBIN 29 pg (25-34); MEAN CORPUSCULAR HGB CONC 33 g/dL (32-36); MEAN CORPUSCULAR VOLUME 87 fL (80-99); MEAN PLATELET VOLUME 10.6 fL (9.0-12.2); MONOCYTES # (AUTO) 0.5 10^3/uL (0.0-1.0); MONOCYTES % (AUTO) 9 % (0-12); NEUTROPHILS # (AUTO) 3.9 10^3/uL (1.8-7.8); NEUTROPHILS % (AUTO) 72 % (42-75); PLATELET COUNT 217 10^3/uL (130-400); WHITE BLOOD COUNT 5.3 10^3/uL (4.3-11.0)
[2021-08-11 10:19] LABS: ALBUMIN 4.2 GM/DL (3.2-4.5); BILIRUBIN,TOTAL 0.8 MG/DL (0.1-1.0); CALCIUM 9.5 MG/DL (8.5-10.1); CREATININE SERUM 0.76 MG/DL (0.60-1.30); POTASSIUM 3.9 MMOL/L (3.6-5.0); TOTAL PROTEIN 7.7 GM/DL (6.4-8.2)
[2021-09-08 09:38] LABS: BASOPHILS % (AUTO) 1 % (0-10); EOSINOPHILS # (AUTO) 0.1 10^3/uL (0.0-0.3); EOSINOPHILS % (AUTO) 1 % (0-10); HEMATOCRIT 41 % (35-52); LYMPHOCYTES # (AUTO) 0.6 10^3/uL (1.0-4.0); LYMPHOCYTES % (AUTO) 14 % (12-44); MEAN CORPUSCULAR HEMOGLOBIN 30 pg (25-34); MEAN CORPUSCULAR HGB CONC 34 g/dL (32-36); MEAN CORPUSCULAR VOLUME 88 fL (80-99); MEAN PLATELET VOLUME 10.9 fL (9.0-12.2); MONOCYTES # (AUTO) 0.4 10^3/uL (0.0-1.0); MONOCYTES % (AUTO) 10 % (0-12); NEUTROPHILS # (AUTO) 3.3 10^3/uL (1.8-7.8); NEUTROPHILS % (AUTO) 74 % (42-75); PLATELET COUNT 216 10^3/uL (130-400); WHITE BLOOD COUNT 4.5 10^3/uL (4.3-11.0)
[2021-09-08 10:20] LABS: ALBUMIN 4.1 GM/DL (3.2-4.5); BILIRUBIN,TOTAL 0.6 MG/DL (0.1-1.0); CREATININE SERUM 0.82 MG/DL (0.60-1.30); POTASSIUM 4.1 MMOL/L (3.6-5.0); TOTAL PROTEIN 7.4 GM/DL (6.4-8.2)
== END 2021-09-14 | disposition home or self-care (01) ==
LOC: ONC 09:23
PROVIDERS: ATTEND Internal Medicine Hematology & Oncology
DX: C73 Malignant neoplasm of thyroid gland (principal); C78.02 Secondary malignant neoplasm of left lung; E03.9 Hypothyroidism, unspecified; I10 Essential (primary) hypertension; Z90.89 Acquired absence of other organs
CPT/HCPCS: 80053; 84432; 84443; 85025; 86800; 99213

== ENCOUNTER 2021-10-07 09:01 | Outpatient (RCR) | payer MEDICARE ==
[2021-10-07 09:13] LABS: BASOPHILS % (AUTO) 1 % (0-10); EOSINOPHILS # (AUTO) 0.1 10^3/uL (0.0-0.3); EOSINOPHILS % (AUTO) 2 % (0-10); HEMATOCRIT 44 % (35-52); HEMOGLOBIN 14.7 g/dL (11.5-16.0); LYMPHOCYTES # (AUTO) 0.9 10^3/uL (1.0-4.0); LYMPHOCYTES % (AUTO) 16 % (12-44); MEAN CORPUSCULAR HEMOGLOBIN 30 pg (25-34); MEAN CORPUSCULAR HGB CONC 34 g/dL (32-36); MEAN CORPUSCULAR VOLUME 90 fL (80-99); MEAN PLATELET VOLUME 10.9 fL (9.0-12.2); MONOCYTES # (AUTO) 0.5 10^3/uL (0.0-1.0); MONOCYTES % (AUTO) 9 % (0-12); NEUTROPHILS # (AUTO) 4.1 10^3/uL (1.8-7.8); NEUTROPHILS % (AUTO) 72 % (42-75); PLATELET COUNT 232 10^3/uL (130-400); WHITE BLOOD COUNT 5.7 10^3/uL (4.3-11.0)
[2021-10-07 09:51] LABS: ALBUMIN 4.2 GM/DL (3.2-4.5); BILIRUBIN,TOTAL 0.7 MG/DL (0.1-1.0); CALCIUM 9.2 MG/DL (8.5-10.1); CREATININE SERUM 0.89 MG/DL (0.60-1.30); POTASSIUM 3.9 MMOL/L (3.6-5.0); TOTAL PROTEIN 7.7 GM/DL (6.4-8.2)
== END 2021-10-30 | disposition home or self-care (01) ==
LOC: ONC 09:01
PROVIDERS: ATTEND Internal Medicine Hematology & Oncology
DX: C73 Malignant neoplasm of thyroid gland (principal); C78.02 Secondary malignant neoplasm of left lung; E03.9 Hypothyroidism, unspecified; I10 Essential (primary) hypertension; F41.8 Other specified anxiety disorders; Z90.89 Acquired absence of other organs
CPT/HCPCS: 80053; 84432; 84443; 85025; 86800; G0463; 99213

== ENCOUNTER → 2022-01-26 | Outpatient (CLI) | payer MEDICARE ==
--- NOTE | 2022-01-26 18:05 | Diagnostic Imaging Report ---
INDICATION: 76-year-old female, postmenopausal. Screening for osteoporosis. COMPARISON: April 07, 2017. FINDINGS: AP Spine L1-L4: [BMD (g/cm2): 1.279] [T-Score: 0.7] [Z-Score: 2.9] [BMD Previous: 1.220] [BMD % Change: 4.8] LT Hip Neck: [BMD (g/cm2): 0.857] [T-Score: -1.3] [Z-Score: 1.0] LT Hip Total: [BMD (g/cm2):0.943] [T-Score:-0.5] [Z-Score: 1.7] [BMD Previous: 0.973] [BMD % Change: -3.1] RT Hip Neck: [BMD (g/cm2):0.912] [T-Score:-0.9] [Z-Score:1.4] RT Hip Total: [BMD (g/cm2):0.918] [T-score:-0.7] [Z-Score:1.5] [BMD Previous:0.973] [BMD % Change:-5.7] *Indicates significant change from prior examination based on 95% confidence level. World Health Organization criteria for BMD interpretation classify patients as Normal (T-score at or above -1.0), Osteopenic (T-score between -1.0 and -2.5) or Osteoporotic (T-score at or below -2.5). LIMITATIONS AND MODIFICATION: None. IMPRESSION: 1. Osteopenia (Low bone mass). 2. No significant change in bone mineral density since prior examination. 3. See below National Osteoporosis Foundation guidelines on when to potentially initiate pharmacologic therapy. Based on the National Osteoporosis Foundation Guidelines, pharmacologic treatment should be initiated in any of the following, unless clinical conditions suggest otherwise: * Any patient with prior fragility fracture of the hip or vertebrae. A spine fracture indicates 5X risk for subsequent spine fracture and 2X risk for subsequent hip fracture. * Osteoporosis (T-score <-2.5). * Postmenopausal women and men age 50 and older with low bone mass/osteopenia (T-score between -1.0 and -2.5) by DXA and 10-year major osteoporotic fracture greater than 20% or a 10-year probability of hip fracture greater than 3%. These fracture risks are supplied above in the FRAX score, if applicable. * Clinician judgement and/or patient preferences may indicate treatment for people with 10-year fracture probabilities above or below these levels. Dictated by: Dictated on workstation # [id number]
== END ==
LOC: RAD 11:30
PROVIDERS: ATTEND Internal Medicine Hematology & Oncology
DX: Z13.820 Encounter for screening for osteoporosis (principal); E89.40 Asymptomatic postprocedural ovarian failure; M85.88 Other specified disorders of bone density and structure, other site; Z78.0 Asymptomatic menopausal state
CPT/HCPCS: 77080